=== PATIENT | male | born 1955 | race Caucasian/White ===

== ENCOUNTER 2018-01-14 14:23 | Emergency (ER) | payer MEDICARE, SELFPAY ==
[2018-01-14 14:33] VITALS: BP 140/88; PULSE 82; RESP 15; TEMP 36.8; O2SAT 95; BMI 29.9
--- NOTE | 2018-01-14 14:52 | ED.EXTPRO ---
HPI - Extremity Problem General Chief complaint: Extremity Problem,Nontraumatic Stated complaint: states right hand is turning white and tingly Time Seen by Provider: 01/14/18 14:52 Source: patient Mode of arrival: ambulatory Limitations: no limitations History of Present Illness HPI Narrative: Patient is a 62-year-old male here for evaluation of pain in his right wrist. He states that the symptoms have started over the past 24 hr. No trauma. He states that prior to arrival he noticed that his right hand was white, painful, cool and the color and his fingernails was slower to recover compared to the left side. No fevers. No trauma. He states that his symptoms have significantly improved at the time of my evaluation. He does have a prior history of open reduction internal fixation of his right wrist 15 years ago. Related Data Home Medications Medication Instructions Recorded Confirmed amlodipine 10 mg PO DAILY 01/14/18 01/14/18 aspirin 81 mg PO DAILY 01/14/18 01/14/18 benazepril 40 mg PO DAILY 01/14/18 01/14/18 chlorthalidone 50 mg PO DAILY 01/14/18 01/14/18 lovastatin 40 mg PO DAILY 01/14/18 01/14/18 metoprolol succinate 1 tab PO DAILY 01/14/18 01/14/18 Allergies Allergy/AdvReac Type Severity Reaction Status Date / Time No Known Drug Allergies Allergy Verified 01/14/18 14:32 Review of Systems Constitutional Denies fatigue and Denies fever(s) Cardiovascular Denies chest pain, Denies irregular heart rhythm, Denies palpitations and Denies dyspnea Respiratory Denies dyspnea and Denies wheezing Gastrointestinal Gastrointestinal: Denies abdominal pain, Denies nausea and Denies vomiting Genitourinary Denies dysuria Musculoskeletal Reports arthralgias and Denies joint swelling Comments: Right wrist pain Integumentary/Breasts Denies rash and Denies wounds Comments: Cool, white right hand Neurologic Comments: Some tingling in the right hand Endocrine Denies fatigue and Denies palpitations Hematologic/Lymphatic Denies easy bleeding and Denies easy bruising Allergic/Immunologic Denies wheezing [facility] Medical History Abdominal aortic aneurysm (Acute) Hyperlipidemia (Acute) Hypertension (Acute) Surgical History History of abdominal aortic aneurysm repair (Acute) History of carpal tunnel release of both wrists (Acute) Hx of cholecystectomy (Acute) Social History Smoking Status: Current every day smoker Exam Initial Vital Signs Initial Vital Signs: Vital Signs Temperature 98.3 F 01/14/18 14:33 Pulse Rate 82 01/14/18 14:33 Respiratory Rate 15 01/14/18 14:33 Blood Pressure 140/88 01/14/18 14:33 Pulse Oximetry 95 01/14/18 14:33 Const General: cooperative, healthy appearing, comfortable, well developed, well groomed and No acute distress Orientation: alert, awake and oriented x3 HENMT Head: normal to inspection and normocephalic Resp Effort & Inspection: normal respiratory effort Auscultation: clear to auscultation bilaterally Cardio Rate: regular rate Rhythm: regular rhythm Heart Sounds: no murmurs Other: I was able to Doppler both a radial and ulnar pulse right upper extremity. Capillary refill 2 sec GI Inspection: non-distended Palpation: No firm and No tender Skin Lesions: no lesions Rashes: no rashes Neuro Other: Sensation intact to light touch in all 3 nerve distributions of the right upper extremity Extrem Other: Right shoulder unremarkable. Patient is tender to palpation medial aspect of right distal humerus. Right elbow unremarkable. Patient is able to flex and extend his right wrist however this is reduced secondary to his history of wrist fusion. Is exquisitely tender to palpation over the volar aspect radial aspect distal radius. Right hand unremarkable. Psych Appearance: grossly normal and well kempt Course Orders Ordered: ED Orders 01/14/18 14:58 CT angio UE RT Stat XR wrist RT min 3V Stat 01/14/18 15:45 Basic Metabolic Panel Stat Complete Blood Count AUTO DIFF Stat Partial Thromboplastin Time Stat Prothrombin Time INR Stat Heparin Sodium/Dextrose (Heparin Drip) 25,000 unit in 500 mls @ 22.752 mls/hr IV CONT JUAN CARLOS; Protocol Last Admin: 01/14/18 19:27 Dose: 12 units/kg/hr, 22.752 mls/hr Discontinued Medications Heparin Sodium (Porcine) (Heparin) 5,700 unit 60 unit/kg (5700 unit) IV NOW ONE Stop: 01/14/18 18:36 Last Admin: 01/14/18 19:27 Dose: 5,700 unit Sodium Chloride (Normal Saline 0.9%) 1,000 mls @ 1,000 mls/hr IV BOLUS ONE Stop: 01/14/18 15:59 Last Infusion: 01/14/18 18:16 Dose: 0 mls/hr Admin: 01/14/18 16:25 Dose: 1,000 mls/hr Morphine Sulfate (Morphine) 2 mg IV NOW ONE Stop: 01/14/18 19:14 Last Admin: 01/14/18 19:18 Dose: 2 mg Vital Signs - 8 hr 01/14/18 14:33 Temperature 98.3 F Pulse Rate 82 Respiratory Rate 15 Blood Pressure 140/88 Pulse Oximetry 95 MDM - Extremity (Nontraumatic) Lab Data Result diagrams: 01/14/18 15:45 01/14/18 15:45 Lab Results 01/14/18 01/14/18 01/14/18 Range/Units 15:45 15:45 15:45 WBC 10.9 (4.5-11.0) X10^3/uL RBC 5.35 (4.5-5.9) X10^6/uL Hgb 16.5 (13.5-17.5) g/dL Hct 47.6 (41-53) % MCV 89.1 (80-100) fL MCH 30.8 (26-34) PG MCHC 34.6 (30-36) % RDW 13.1 (11.6-14.8) % Plt Count 236 (150-400) X10^3/uL Neut % (Auto) 67.7 (50-75) % Lymph % (Auto) 17.6 L (25-40) % [place] % (Auto) 11.5 (3-14) % Eos % (Auto) 2.3 (2-4) % Baso % (Auto) 0.9 (0-2) % Neut # (Auto) 7400 H (8057-0769) /uL PT 14.5 H (10.1-12.7) SECONDS INR 1.3 (0.9-1.3) APTT 25 L (26.4-36.2) SECONDS Sodium 145 (137-145) mmol/L Potassium 3.5 (3.4-5.1) mmol/L Chloride 102 (98-107) mmol/L Carbon Dioxide 31 (22-32) mmol/L BUN 18 (9-20) mg/dL Creatinine 0.90 (0.66-1.25) mg/dL Estimated GFR > 60.0 (>60) mL/min BUN/Creatinine Ratio 20.0 (6-22) Glucose 107 (80-110) mg/dL Calcium 10.4 H (8.4-10.2) mg/dL Imaging Data X-ray wrist: Radiologist's impression: PROCEDURE: XR WRIST RT MIN 3V INDICATIONS: pain wrist TECHNIQUE: 3 views of the wrist were acquired. COMPARISON: None. FINDINGS: Bones: No fractures or dislocations. No suspicious bony lesions. There is appearance of an old healed mid ulnar fracture. Surgical hardware is present overlying the anterior carpal bones. Rounded lucencies noted within the proximal radial shaft as well as the carpal bones. No priors are available for comparison. Scaphoid view: Not obtained. Soft tissues: No suspicious soft tissue calcifications. IMPRESSION: Lucency is present within the proximal radial shaft and mid carpal bones, possibly representing old hardware tract. No visualized acute fracture or dislocation. However, if clinical concern and/or pain persist, short interval imaging followup in 7-10 days is recommended, as occult injury cannot be definitively excluded. Dictated by: Loli Ortega M.D. on 01/14/2018 at 15:24 Approved by: Loli Ortega M.D. on 01/14/2018 at 15:26 CT angio right upper extremity: Radiologist's impression: [place] [address] CT Scan Report Signed Patient: Leon Ashby [facility]#: [id number] : 4Acct:[id number] Age/Sex: 62 / MDate of Service: 01/14/18 Loc: ED Accession Number: [id number] Procedure: CT angio UE RT Ordering Provider: Art Sierra D.O. PROCEDURE: CT ANGIO UE RT COMPARISON: None. INDICATIONS: white, cool, painful hand Contrast was injected and images were acquired of the right upper extremity in the arterial phase. FINDINGS: Visualized portions of the left brachiocephalic, carotid, and subclavian artery are unremarkable. The right common carotid artery is normal caliber where visualized. The right subclavian artery is ectatic throughout its course. There is ectasia of the right axillary artery and the superior portion of the right brachial artery. There is focal, nonocclusive thrombus within the midportion of the right brachial artery (series 6, image 325 and series 7, image 29). The more peripheral portions of the right brachial artery are widely patent. There is likely bifurcation of the radial and ulnar arteries at the antecubital fossa; however the ulnar artery is not opacified in this region. There is opacification of the midportion of the ulnar and interosseous arteries. The radial artery is opacified to the mid forearm; however, the contrast bolus does not extend more distally towards the wrist secondary to poor bolus timing. There is some opacification of a diminutive ulnar artery within the mid forearm. Patient is status post distant trauma to the mid shaft of the ulna. Hardware is present within the carpal bones. Degenerative changes are present in this region. IMPRESSION: 1. Findings suspicious for focal, nonocclusive thrombus within the midportion of the right brachial artery. Given the patient history, embolic event should be considered in the differential diagnosis. Urgent vascular surgery consultation recommended. 2. Incomplete opacification of the arteries of the forearm. Unfortunately given the poor timing bolus occlusive thrombus within the forearm cannot be excluded at this time. If further characterization is oriented, ultrasound of the arteries of the forearm is recommended. These findings were discussed with Dr. Sierra at 4:50 PM on 01/15/08. Dictated by: Emmanuelle Bailon M.D. on 01/14/2018 at 16:56 Approved by: Emmanuelle Bailon M.D. on 01/14/2018 at 17:13 MDM Narrative Medical decision making narrative: X-ray shows no acute fracture. The CTA of the right wrist shows a nonocclusive right brachial artery thrombus. Given the history of how the patient presented prior to arrival I do have concern some concern about emboli. Since the patient has been here in the emergency department he has had capillary refill of 2 sec, the tingling in his hand has all but resolved and he does have dopplerable radial and ulnar pulses. I discussed the case with Dr. Salazar at [facility] who reviewed the patient's CT. He stated that because it was a nonocclusive thrombus and the fact that the patient's symptoms were improving that he could be started on IV heparin and observed for worsening condition and then transition to oral anticoagulation. He also recommended a echo and also vascular studies of the right upper extremity. Our review stated that since he was not acutely requiring surgery that they could not accept him. They did state that if his symptoms worsen he would already be on heparin we could call him back and transfer the patient. I discussed the case with Dr. Noguera who is our hospitalist here who had concerns about admitting him here in the event of his symptoms worsening and also our capability of obtaining an echo and also the right upper extremity vascular studies that the surgeon had recommended. Secondary to this concern from the hospitalist I did contact the vascular surgeon at [facility].. Dr. Proctor had some reluctance of accepting the patient secondary to my already having talked with a vascular surgeon down at [facility]. However he did state that if the hospitalist would accept the patient and if there were beds available he would be happy to consult on the patient. He did agree with the heparin. I discussed the case with Dr. Fernandez who was the hospitalist at [facility] he did accept the patient in transfer. The patient has been started on heparin. He was given pain medications. He was informed of the decision from the [facility] physicians and also the decision to transport him to [facility]. Patient expressed understanding and agreement this plan. Discharge Plan Departure Patient Disposition: [facility] Clinical Impression: Brachial artery thrombus Prescriptions: No Action metoprolol succinate 50 mg tablet extended release 24 hr 1 tab PO DAILY RF: 0 amlodipine 10 mg tablet 10 mg PO DAILY RF: 0 lovastatin 40 mg tablet 40 mg PO DAILY RF: 0 chlorthalidone 50 mg tablet 50 mg PO DAILY RF: 0 aspirin 81 mg Tablet,Delayed Release (Dr/Ec) 81 mg PO DAILY RF: 0 benazepril 40 mg tablet 40 mg PO DAILY RF: 0
--- NOTE | 2018-01-14 14:58 | DI.CT.S_ITS ---
PROCEDURE: CT ANGIO UE RT COMPARISON: None. INDICATIONS: white, cool, painful hand Contrast was injected and images were acquired of the right upper extremity in the arterial phase. FINDINGS: Visualized portions of the left brachiocephalic, carotid, and subclavian artery are unremarkable. The right common carotid artery is normal caliber where visualized. The right subclavian artery is ectatic throughout its course. There is ectasia of the right axillary artery and the superior portion of the right brachial artery. There is focal, nonocclusive thrombus within the midportion of the right brachial artery (series 6, image 325 and series 7, image 29). The more peripheral portions of the right brachial artery are widely patent. There is likely bifurcation of the radial and ulnar arteries at the antecubital fossa; however the ulnar artery is not opacified in this region. There is opacification of the midportion of the ulnar and interosseous arteries. The radial artery is opacified to the mid forearm; however, the contrast bolus does not extend more distally towards the wrist secondary to poor bolus timing. There is some opacification of a diminutive ulnar artery within the mid forearm. Patient is status post distant trauma to the mid shaft of the ulna. Hardware is present within the carpal bones. Degenerative changes are present in this region. IMPRESSION: 1. Findings suspicious for focal, nonocclusive thrombus within the midportion of the right brachial artery. Given the patient history, embolic event should be considered in the differential diagnosis. Urgent vascular surgery consultation recommended. 2. Incomplete opacification of the arteries of the forearm. Unfortunately given the poor timing bolus occlusive thrombus within the forearm cannot be excluded at this time. If further characterization is oriented, ultrasound of the arteries of the forearm is recommended. These findings were discussed with Dr. Sierra at 4:50 PM on 01/15/08. Dictated by: Emmanuelle Bailon M.D. on 01/14/2018 at 16:56 Approved by: Emmanuelle Bailon M.D. on 01/14/2018 at 17:13
--- NOTE | 2018-01-14 14:58 | DI.RAD.S_ITS ---
PROCEDURE: XR WRIST RT MIN 3V INDICATIONS: pain wrist TECHNIQUE: 3 views of the wrist were acquired. COMPARISON: None. FINDINGS: Bones: No fractures or dislocations. No suspicious bony lesions. There is appearance of an old healed mid ulnar fracture. Surgical hardware is present overlying the anterior carpal bones. Rounded lucencies noted within the proximal radial shaft as well as the carpal bones. No priors are available for comparison. Scaphoid view: Not obtained. Soft tissues: No suspicious soft tissue calcifications. IMPRESSION: Lucency is present within the proximal radial shaft and mid carpal bones, possibly representing old hardware tract. No visualized acute fracture or dislocation. However, if clinical concern and/or pain persist, short interval imaging followup in 7-10 days is recommended, as occult injury cannot be definitively excluded. Dictated by: Loli Ortega M.D. on 01/14/2018 at 15:24 Approved by: Loli Ortega M.D. on 01/14/2018 at 15:26
[2018-01-14 15:55] LABS: Add Manual Diff / Slide Review NO; Basophils Percent Auto 0.9 % (0-2); Eosinophils Percent Auto 2.3 % (2-4); Hematocrit 47.6 % (41-53); Hemoglobin 16.5 g/dL (13.5-17.5); Lymphocytes Percent Auto 17.6 % (25-40); Mean Corpuscular HGB Conc 34.6 % (30-36); Mean Corpuscular Hemoglobin 30.8 PG (26-34); Mean Corpuscular Volume 89.1 fL (80-100); Monocytes Percent Auto 11.5 % (3-14); Neutrophils Absolute Auto 7400 /uL (3000-5900); Neutrophils Percent Auto 67.7 % (50-75); Platelet Count 236 X10^3/uL (150-400); Red Blood Cell Count 5.35 X10^6/uL (4.5-5.9); Red Cell Distribution Width 13.1 % (11.6-14.8); White Blood Cell Count 10.9 X10^3/uL (4.5-11.0)
[2018-01-14 16:04] LABS: INR 1.3 (0.9-1.3); Prothrombin Time 14.5 SECONDS (10.1-12.7)
[2018-01-14 16:06] LABS: PTT Partial Thromboplastin Tim 25 SECONDS (26.4-36.2)
[2018-01-14 16:08] LABS: Blood Urea Nitrogen 18 mg/dL (9-20); Calcium 10.4 mg/dL (8.4-10.2); Carbon Dioxide 31 mmol/L (22-32); Chloride 102 mmol/L (98-107); Estimated Glomerular Filt Rate > 60.0 mL/min (>60); Glucose 107 mg/dL (80-110); HEMOLYSIS 15 (0-50); Potassium 3.5 mmol/L (3.4-5.1); Sodium 145 mmol/L (137-145)
[2018-01-14] MEDS: SODIUM CHLORIDE 0.9% 1,000 ML 1000 ML IV (16:25)
[2018-01-14 17:30] VITALS: BP 164/88; PULSE 86; RESP 20
[2018-01-14] MEDS: MORPHINE 4 MG/ML INJ 2 MG IV (19:18)
[2018-01-14] MEDS: HEPARIN DRIP 25,000 UNIT/500 ML IV.SOLN 22.752 UNIT IV (19:27)
[2018-01-14] MEDS: HEPARIN 5,000 UNIT/ML VIAL 5700 UNIT IV (19:27)
[2018-01-14 20:30] VITALS: BP 125/88; PULSE 80; RESP 20; O2SAT 98
[2018-01-14] MEDS: MORPHINE 2 MG/ML INJ IV (21:00)
--- NOTE | 2018-01-14 21:25 | PC.NURSE ---
pt skin and nails pink when he holds hand downward.
== END 2018-01-14 21:15 | disposition short-term general hospital (02) ==
PROVIDERS: Emergency Provider Emergency Medicine
DX: I74.2 Embolism and thrombosis of arteries of the upper extremities (principal)
CPT/HCPCS: 36591; 73110; 73206; 80048; 85025; 85610; 85730; 96361; 96365; 96366; 96375; 96376; 99283; 99285; J1644; J2270; Q9967

== ENCOUNTER 2018-01-17 09:48 | Emergency (ER) | payer MEDICARE, SELFPAY ==
[2018-01-17 09:52] VITALS: BP 140/88; PULSE 67; RESP 18; TEMP 36.2; O2SAT 96
--- NOTE | 2018-01-17 10:42 | ED.EXTPRO ---
HPI - Extremity Problem General Chief complaint: Extremity Problem,Nontraumatic Stated complaint: Right arm pain and swelling Time Seen by Provider: 01/17/18 09:58 Source: patient and old records reviewed Mode of arrival: ambulatory Limitations: no limitations History of Present Illness HPI Narrative: Patient is a 62-year-old male who presents with right forearm swelling. He actually presented here on 01/14/2018 with ischemic like symptoms found to have a brachial artery occlusion. He was transferred to telling him where he had a thrombectomy of the radial and axillary artery. He was discharged yesterday. He did not have any significant swelling yesterday. Today he has obvious swelling and some serosanguineous weeping from his wounds. He denies fever or chills he has no numbness or tingling in his hand. It previously had intermittent white this to the hand today he does not have that. He has no weakness. MD Complaint: extremity swelling Related Data Home Medications Medication Instructions Recorded Confirmed amlodipine 10 mg PO DAILY 01/14/18 01/17/18 aspirin 81 mg PO DAILY 01/14/18 01/17/18 benazepril 40 mg PO DAILY 01/14/18 01/17/18 chlorthalidone 50 mg PO DAILY 01/14/18 01/17/18 lovastatin 40 mg PO DAILY 01/14/18 01/17/18 metoprolol succinate 1 tab PO DAILY 01/14/18 01/17/18 enoxaparin 30 mg SUBCUT Q12H 01/17/18 01/17/18 warfarin [Coumadin] 5 mg PO DIRECTED 01/17/18 01/17/18 Allergies Allergy/AdvReac Type Severity Reaction Status Date / Time No Known Drug Allergies Allergy Verified 01/17/18 09:55 Review of Systems Review of Systems All systems reviewed & are unremarkable except as noted in HPI and below Constitutional Denies chills, Denies fever(s), Denies lethargy and Denies weakness Cardiovascular Denies chest pain, Denies irregular heart rhythm, Denies lightheadedness, Denies palpitations, Denies dyspnea, Denies dyspnea on exertion and Denies orthopnea Respiratory Denies cough, Denies dyspnea, Denies dyspnea on exertion and Denies wheezing Gastrointestinal Gastrointestinal: Denies abdominal pain, Denies change in bowel habits, Denies diarrhea, Denies nausea and Denies vomiting Musculoskeletal Reports as per HPI and Denies tingling Integumentary/Breasts Denies pruritus, Denies erythema, Denies rash, Reports skin swelling and Reports wounds (Postoperative) Neurologic Denies burning sensations, Denies radicular pain, Denies tingling, Denies paresthesias and Denies weakness Endocrine Denies palpitations Allergic/Immunologic Denies wheezing [facility] Medical History Abdominal aortic aneurysm (Acute) COPD (chronic obstructive pulmonary disease) (Acute) Hyperlipidemia (Acute) Hypertension (Acute) Patent foramen ovale (Acute) Peripheral vascular disease (Acute) Surgical History History of abdominal aortic aneurysm repair (Acute) History of carpal tunnel release of both wrists (Acute) Hx of cholecystectomy (Acute) Social History Smoking Status: Current every day smoker Comment: Thrombectomy of the radial and axillary artery Exam Initial Vital Signs Initial Vital Signs: Vital Signs Temperature 97.2 F L 01/17/18 09:52 Pulse Rate 67 01/17/18 09:52 Respiratory Rate 18 01/17/18 09:52 Blood Pressure 140/88 01/17/18 09:52 Pulse Oximetry 96 01/17/18 09:52 GENERAL: Well-appearing, well-nourished and in no acute distress. HEENT: Head atraumatic,EOMI, pupils reactive, face symmetric, moist mucous membranes CARDIOVASCULAR: Regular rate and rhythm without murmurs, rubs or gallops. RESPIRATORY: Breath sounds equal bilaterally, no wheezes rales or rhonchi. ABDOMEN: Soft, nontender. Normoactive bowel sounds all 4 quadrants. No guarding or rebound. EXTREMITIES: Normal range of motion, no clubbing or edema. Neurovascularly intact -Right forearm does have significant swelling incision sites are id an appear clean and dry no erythema or sign of infection. Distal radial pulse is palpable and strong. Ulnar pulses not felt. Cap refill less than 2 sec. Able to move all fingers sensation is intact NEUROLOGICAL: Alert and oriented x4.Normal gait and speech. Cranial nerves II through XII grossly intact. SKIN: Warm, dry, no laceration, no petechiae, no rashes or lesions. Course Orders Ordered: Discontinued Medications Enoxaparin Sodium (Lovenox) 30 mg SUBCUT DAILY JUAN CARLOS Last Admin: 01/17/18 15:40 Dose: 30 mg Hydromorphone HCl (Dilaudid) 1 mg IV NOW ONE Stop: 01/17/18 10:48 Last Admin: 01/17/18 11:23 Dose: 1 mg Hydromorphone HCl (Dilaudid) 1 mg IV NOW ONE Stop: 01/17/18 14:53 Last Admin: 01/17/18 14:40 Dose: 1 mg Warfarin Sodium (Coumadin) 5 mg PO NOW ONE Stop: 01/17/18 15:46 Last Admin: 01/17/18 16:06 Dose: 5 mg Vital Signs - 8 hr 01/17/18 09:52 Temperature 97.2 F L Pulse Rate 67 Respiratory Rate 18 Blood Pressure 140/88 Pulse Oximetry 96 MDM - Extremity (Nontraumatic) Medical Records Attestation: I reviewed the patient's medical records. Lab Data Attestation: I reviewed the patient's lab results. Result diagrams: 01/17/18 11:08 01/17/18 11:08 Lab Results 01/17/18 01/17/18 Range/Units 11:08 11:08 WBC 13.3 H (4.5-11.0) X10^3/uL RBC 4.71 (4.5-5.9) X10^6/uL Hgb 14.6 (13.5-17.5) g/dL Hct 42.2 (41-53) % MCV 89.7 (80-100) fL MCH 31.0 (26-34) PG MCHC 34.6 (30-36) % RDW 12.9 (11.6-14.8) % Plt Count 219 (150-400) X10^3/uL Neut % (Auto) 75.0 (50-75) % Lymph % (Auto) 13.0 L (25-40) % [place] % (Auto) 9.9 (3-14) % Eos % (Auto) 1.4 L (2-4) % Baso % (Auto) 0.7 (0-2) % Neut # (Auto) 9900 H (7014-2666) /uL Sodium 145 (137-145) mmol/L Potassium 3.8 (3.4-5.1) mmol/L Chloride 105 (98-107) mmol/L Carbon Dioxide 34 H (22-32) mmol/L BUN 21 H (9-20) mg/dL Creatinine 0.80 (0.66-1.25) mg/dL Estimated GFR > 60.0 (>60) mL/min BUN/Creatinine Ratio 26.3 H (6-22) Glucose 102 (80-110) mg/dL Calcium 9.6 (8.4-10.2) mg/dL Imaging Data US right UE arterial: Radiologist's impression: PROCEDURE: US ARTERIAL DUPLEX UE RT COMPARISON: None. INDICATIONS: recent embolectomy of right upper extremity arterial clot, decreased ulnar pulse FINDINGS: Right subclavian: 44 cm/s; biphasic flow Right axillary: 18 cm second; monophasic flow Mid right brachial: 101 cm/s; biphasic flow. Right distal radial: 44 cm/s; biphasic flow Right distal ulnar 11 cm/s; monophasic flow IMPRESSION: Reduced flow in the right axillary artery and the distal right ulnar artery which be due to a vascular injury/dissection, atherosclerotic stenosis or nonocclusive thrombus. Recommend CT angiogram for further evaluation. Findings discussed with Dr. Bowie on 01/17/18 at 1205 hrs. Dictated by: Candice Vitale MD, PhD on 01/17/2018 at 12:00 CT angio Right UE: Radiologist's impression: PROCEDURE: CT angiogram right upper extremity INDICATIONS: recent thrombus right brachial-now pain and swelling TECHNIQUE: Following the administration of intravenous contrast, multiple contiguous axial images were obtained through the right upper extremity during the arterial phase. 2 mm in 5 mm axial reconstructions were performed with 3 mm coronal and sagittal reformats. COMPARISON: [facility], CT, CT ANGIO UE RT, 01/14/2018, 16:15. FINDINGS: Image quality: Excellent. Arteries: The right brachiocephalic, subclavian, axillary, and brachial arteries appear widely patent. There is occlusive thrombus demonstrated at the origin of a branch arising from the brachial artery at the level of the proximal humeral shaft likely representing the deep brachial artery. The radial artery appears patent along its course to the level of the wrist where there is occlusive thrombus. The ulnar artery also appears patent to the level of the wrist where there is apparent occlusion. The interosseous artery appears patent along its course extending into the hand. Soft tissues: There is mild edema and fluid tracking along the proximal radial artery at the level of the proximal humerus. Visualized muscles demonstrate no fluid collections. Visualized tendons appear grossly intact. Within the visualized right lung, there is a small right upper lobe nodule measuring approximately 6 mm on series 5 image 362. A smaller 2 mm nodule is straight in the right apex on image 57. Bones: Visualized osseous structures appear intact without suspicious osseous lesions. IMPRESSION: 1. 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 The interosseous artery appears patent along its course extending into the hand with associated collateral flow. 2. Occlusion of the deep brachial artery at its origin at the level of the proximal humeral shaft. Findings discussed with Dr. Bowie on 01/17/18 at 2:15 PM. 3. Small nonspecific right upper lobe dominant nodules within the visualized lungs measuring up to 6 mm. If patient is at high risk for malignancy, a followup CT may be performed in 12 months to demonstrate stability. Dictated by: Rafi Cortes M.D. on 01/17/2018 at 13:58 MDM Narrative Medical decision making narrative: I spoke with , vascular surgery up at billing him. She recommended a CT for more information. She has reviewed the CT herself she finds a CTA very reassuring. His hand is warm with a palpable radial pulse. His he recommends that he fill his anticoagulation as soon as possible any give follow up in the office as previously arranged. Patient has been elevating the arm since I have seen him. The swelling has actually decreased quite a bit, the pain has also decreased. Dilaudid did help with the pain. Discussed with him that the CT is reassuring that vascular surgery has reviewed it. He is given his 1st dose of anticoagulation here in the ED instructed to fill his prescription as soon as possible and start taking as directed. Discharge Plan Departure Patient Disposition: Home Clinical Impression: Peripheral vascular disease Discharge Date/Time: 01/17/18 16:08 Interventions: ED Discharge Assessment Last Done: 01/17/18 16:00 Instructions: Peripheral Artery Disease Activity Restrictions/Additional Instructions: *You have been diagnosed with peripheral vascular disease *What to do: I spoke with vascular surgery who has reviewed your CT today findings are reassuring. Keep arm elevated ice if needed *Continue to take medications as directed Start taking medications as directed you got her 1st dose today. *Follow up with your primary care provider in 2-3 days, follow up with vascular surgery in billing him as previously arranged *Return to ER if you should have numbness tingling, weakness, pain or any new, worsening or concerning symptoms Prescriptions: No Action metoprolol succinate 50 mg tablet extended release 24 hr 1 tab PO DAILY RF: 0 amlodipine 10 mg tablet 10 mg PO DAILY RF: 0 lovastatin 40 mg tablet 40 mg PO DAILY RF: 0 chlorthalidone 50 mg tablet 50 mg PO DAILY RF: 0 aspirin 81 mg Tablet,Delayed Release (Dr/Ec) 81 mg PO DAILY RF: 0 benazepril 40 mg tablet 40 mg PO DAILY RF: 0 warfarin [Coumadin] 5 mg Tablet 5 mg PO DIRECTED RF: 0 enoxaparin 30 mg/0.3 mL Syringe 30 mg SUBCUT Q12H RF: 0
--- NOTE | 2018-01-17 10:47 | DI.US.S_ITS ---
PROCEDURE: US ARTERIAL DUPLEX UE RT COMPARISON: None. INDICATIONS: recent embolectomy of right upper extremity arterial clot, decreased ulnar pulse FINDINGS: Right subclavian: 44 cm/s; biphasic flow Right axillary: 18 cm second; monophasic flow Mid right brachial: 101 cm/s; biphasic flow. Right distal radial: 44 cm/s; biphasic flow Right distal ulnar 11 cm/s; monophasic flow IMPRESSION: Reduced flow in the right axillary artery and the distal right ulnar artery which be due to a vascular injury/dissection, atherosclerotic stenosis or nonocclusive thrombus. Recommend CT angiogram for further evaluation. Findings discussed with Dr. Bowie on 01/17/18 at 1205 hrs. Dictated by: Candice Vitale MD, PhD on 01/17/2018 at 12:00 Approved by: Candice Vitale MD, PhD on 01/17/2018 at 12:06
[2018-01-17 11:15] LABS: Add Manual Diff / Slide Review NO; Basophils Percent Auto 0.7 % (0-2); Eosinophils Percent Auto 1.4 % (2-4); Hematocrit 42.2 % (41-53); Hemoglobin 14.6 g/dL (13.5-17.5); Mean Corpuscular HGB Conc 34.6 % (30-36); Mean Corpuscular Volume 89.7 fL (80-100); Monocytes Percent Auto 9.9 % (3-14); Neutrophils Absolute Auto 9900 /uL (3000-5900); Platelet Count 219 X10^3/uL (150-400); Red Blood Cell Count 4.71 X10^6/uL (4.5-5.9); Red Cell Distribution Width 12.9 % (11.6-14.8); White Blood Cell Count 13.3 X10^3/uL (4.5-11.0)
[2018-01-17] MEDS: HYDROMORPHONE 2 MG INJ 1 MG IV (11:23)
[2018-01-17 11:24] VITALS: BP 158/78; PULSE 88; RESP 18; O2SAT 98
[2018-01-17 11:28] LABS: BUN Creatinine Ratio 26.3 (6-22); Blood Urea Nitrogen 21 mg/dL (9-20); Calcium 9.6 mg/dL (8.4-10.2); Carbon Dioxide 34 mmol/L (22-32); Chloride 105 mmol/L (98-107); Estimated Glomerular Filt Rate > 60.0 mL/min (>60); Glucose 102 mg/dL (80-110); HEMOLYSIS < 15 (0-50); Potassium 3.8 mmol/L (3.4-5.1); Sodium 145 mmol/L (137-145)
--- NOTE | 2018-01-17 12:27 | PC.NURSE ---
pt's right arm is swollen. pt was seen at [facility] yesterday for ischemia in the [place], right arm thrombosis. pt reports that he had copious clots in that arm.
[2018-01-17 14:01] VITALS: BP 139/88; PULSE 55; RESP 18; O2SAT 98
--- NOTE | 2018-01-17 14:08 | DI.CT.S_ITS ---
PROCEDURE: CT angiogram right upper extremity INDICATIONS: recent thrombus right brachial-now pain and swelling TECHNIQUE: Following the administration of intravenous contrast, multiple contiguous axial images were obtained through the right upper extremity during the arterial phase. 2 mm in 5 mm axial reconstructions were performed with 3 mm coronal and sagittal reformats. COMPARISON: [facility], CT, CT ANGIO UE RT, 01/14/2018, 16:15. FINDINGS: Image quality: Excellent. Arteries: The right brachiocephalic, subclavian, axillary, and brachial arteries appear widely patent. There is occlusive thrombus demonstrated at the origin of a branch arising from the brachial artery at the level of the proximal humeral shaft likely representing the deep brachial artery. The radial artery appears patent along its course to the level of the wrist where there is occlusive thrombus. The ulnar artery also appears patent to the level of the wrist where there is apparent occlusion. The interosseous artery appears patent along its course extending into the hand. Soft tissues: There is mild edema and fluid tracking along the proximal radial artery at the level of the proximal humerus. Visualized muscles demonstrate no fluid collections. Visualized tendons appear grossly intact. Within the visualized right lung, there is a small right upper lobe nodule measuring approximately 6 mm on series 5 image 362. A smaller 2 mm nodule is straight in the right apex on image 57. Bones: Visualized osseous structures appear intact without suspicious osseous lesions. IMPRESSION: 1. 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 The interosseous artery appears patent along its course extending into the hand with associated collateral flow. 2. Occlusion of the deep brachial artery at its origin at the level of the proximal humeral shaft. Findings discussed with Dr. Bowie on 01/17/18 at 2:15 PM. 3. Small nonspecific right upper lobe dominant nodules within the visualized lungs measuring up to 6 mm. If patient is at high risk for malignancy, a followup CT may be performed in 12 months to demonstrate stability. Dictated by: Rafi Cortes M.D. on 01/17/2018 at 13:58 Approved by: Rafi Cortes M.D. on 01/17/2018 at 14:29
[2018-01-17] MEDS: HYDROMORPHONE 1 MG INJ IV (14:40)
[2018-01-17 15:23] VITALS: BP 133/89; PULSE 48; RESP 16; O2SAT 96
[2018-01-17] MEDS: ENOXAPARIN 30 MG/0.3 ML SYRINGE SUBCUT (15:40)
[2018-01-17 15:58] VITALS: BP 134/92; PULSE 75; RESP 16; O2SAT 98
[2018-01-17] MEDS: WARFARIN 5 MG TABLET PO (16:06)
== END 2018-01-17 16:08 | disposition home or self-care (01) ==
PROVIDERS: Emergency Provider Emergency Medicine
DX: I73.9 Peripheral vascular disease, unspecified (principal)
CPT/HCPCS: 36591; 73206; 80048; 85025; 93931; 96374; 96376; 99283; 99285; J1170; J1650; Q9967

== ENCOUNTER 2018-04-02 09:28 | Emergency (ER) | payer MEDICARE, SELFPAY ==
[2018-04-02 09:36] VITALS: BP 153/85; PULSE 70; RESP 14; TEMP 36.9; O2SAT 95
--- NOTE | 2018-04-02 10:08 | ED.LOWEXIN ---
HPI - Extremity Injury (Lower) General Chief Complaint: Extremity Injury, Lower Stated Complaint: lump on left leg Time Seen by Provider: 04/02/18 09:55 Source: patient Mode of arrival: ambulatory Limitations: no limitations History of Present Illness HPI Narrative: The patient is a 62-year-old male who presents with left knee swelling. He injured it a few weeks ago he has had some swelling and pain off and on but seem to be managing okay. however this morning he woke up this morning with significantly more swelling. Nontender non erythematous. It is in his patella tendon. He is on Coumadin is for clotting disorder. No numbness tingling. MD complaint: knee injury Onset (ago): week(s) (3) Related Data Home Medications Medication Instructions Recorded Confirmed amlodipine 10 mg PO DAILY 01/14/18 01/17/18 aspirin 81 mg PO DAILY 01/14/18 01/17/18 benazepril 40 mg PO DAILY 01/14/18 01/17/18 chlorthalidone 50 mg PO DAILY 01/14/18 01/17/18 lovastatin 40 mg PO DAILY 01/14/18 01/17/18 metoprolol succinate 1 tab PO DAILY 01/14/18 01/17/18 enoxaparin 30 mg SUBCUT Q12H 01/17/18 01/17/18 warfarin [Coumadin] 5 mg PO DIRECTED 01/17/18 01/17/18 Allergies Allergy/AdvReac Type Severity Reaction Status Date / Time No Known Drug Allergies Allergy Verified 01/17/18 09:55 Review of Systems Review of Systems All systems reviewed & are unremarkable except as noted in HPI and below Constitutional Denies chills, Denies fever(s), Denies lethargy and Denies weakness Eyes Denies change in vision, Denies eye discharge, Denies irritation and Denies loss of vision Cardiovascular Denies chest pain, Denies irregular heart rhythm, Denies lightheadedness, Denies palpitations, Denies dyspnea, Denies dyspnea on exertion and Denies orthopnea Respiratory Denies cough, Denies dyspnea, Denies dyspnea on exertion and Denies wheezing Musculoskeletal Reports as per HPI, Denies abnormal gait, Denies joint swelling, Denies numbness and Denies stiffness Integumentary/Breasts Denies pruritus, Denies erythema, Denies rash and Denies wounds Neurologic Denies abnormal gait, Denies loss of vision, Denies numbness and Denies weakness Endocrine Denies palpitations Allergic/Immunologic Denies wheezing PFSH Medical History Abdominal aortic aneurysm (Acute) Axillary artery thrombosis, right (Acute) COPD (chronic obstructive pulmonary disease) (Acute) Hyperlipidemia (Acute) Hypertension (Acute) Patent foramen ovale (Acute) Peripheral vascular disease (Acute) Radial artery occlusion, right (Acute) Surgical History History of abdominal aortic aneurysm repair (Acute) History of carpal tunnel release of both wrists (Acute) Hx of cholecystectomy (Acute) Social History Smoking Status: Current every day smoker Exam Initial Vital Signs Initial Vital Signs: Vital Signs Temperature 98.4 F 04/02/18 09:36 Pulse Rate 70 04/02/18 09:36 Respiratory Rate 14 04/02/18 09:36 Blood Pressure 153/85 H 04/02/18 09:36 Pulse Oximetry 95 04/02/18 09:36 GENERAL: Well-appearing, well-nourished and in no acute distress. CARDIOVASCULAR: peripheral pulses in tact, cap refill <2 sec RESPIRATORY: No respiratory distress, speaks in full sentences without difficulty EXTREMITIES: Normal range of motion, no clubbing or edema. Neurovascularly intact -left patella swelling no effusion of the knee full flexion and extension. No erythema nontender neurovascularly intact. Effusion measures 6 cm x 7 cm NEUROLOGICAL: Cranial nerves II through XII grossly intact. Normal gait and speech. SKIN: Warm, dry, no petechiae, no rashes or lesions. Course Vital Signs - 8 hr 04/02/18 10:29 Pulse Rate 72 Respiratory Rate 19 Blood Pressure [Left Arm] 147/98 H Pulse Oximetry 95 MDM - Extremity Injury (Lower) MDM Narrative Medical decision making narrative: Patient's knee is stable no real patella effusion it is more of a patellar tendon effusion. Patient is on Coumadin at this time recommend conservative treatment with compression elevation and ice. If it is getting worse then may need draining. No sign of infection at this time. Discharge Plan Departure Patient Disposition: Home Clinical Impression: Patellar tendonitis of left knee, Effusion of patella Discharge Date/Time: 04/02/18 10:35 Interventions: ED Discharge Assessment Last Done: 04/02/18 10:35 Instructions: DI for Knee Effusion Activity Restrictions/Additional Instructions: *You have been diagnosed with a left knee effusion patellar tendon effusion *What to do: Compressed with Rashel wrap especially while active possibly at night as well. May remove as needed. Ice, elevate *Continue to take medications as directed *Follow up with your primary care provider in 2-3 days *Return to ER if you should have redness, pus, swelling, tenderness or any new, worsening or concerning symptoms Prescriptions: No Action metoprolol succinate 50 mg tablet extended release 24 hr 1 tab PO DAILY RF: 0 amlodipine 10 mg tablet 10 mg PO DAILY RF: 0 lovastatin 40 mg tablet 40 mg PO DAILY RF: 0 chlorthalidone 50 mg tablet 50 mg PO DAILY RF: 0 aspirin 81 mg Tablet,Delayed Release (Dr/Ec) 81 mg PO DAILY RF: 0 benazepril 40 mg tablet 40 mg PO DAILY RF: 0 warfarin [Coumadin] 5 mg Tablet 5 mg PO DIRECTED RF: 0 enoxaparin 30 mg/0.3 mL Syringe 30 mg SUBCUT Q12H RF: 0 Referrals: Brandon Carver MD [Non-Staff] -
--- NOTE | 2018-04-02 10:12 | PC.NURSE ---
Effusion noted below left knee. Fall couple weeks ago, swelling worse this morning. No obvious bruising. CMS intact. ROM intact. On coumadin. Normal PT/INR
[2018-04-02 10:29] VITALS: BP 147/98; PULSE 72; RESP 19; O2SAT 95
== END 2018-04-02 10:35 | disposition home or self-care (01) ==
PROVIDERS: Emergency Provider Emergency Medicine
DX: M76.52 Patellar tendinitis, left knee (principal); M25.462 Effusion, left knee; Z79.01 Long term (current) use of anticoagulants
CPT/HCPCS: 99282

== ENCOUNTER 2018-04-12 13:35 | Emergency (ER) | payer MEDICARE, SELFPAY ==
[2018-04-12 13:44] VITALS: BP 132/84; PULSE 83; RESP 16; TEMP 36.4; O2SAT 99; BMI 31.5
--- NOTE | 2018-04-12 14:03 | ED_ITS ---
HPI - Extremity Problem General Chief complaint: Extremity Problem,Nontraumatic Stated complaint: LUMP UNDER KNEE, NOT GETTING BETTER Time Seen by Provider: 04/12/18 13:55 Source: patient Mode of arrival: ambulatory Limitations: no limitations History of Present Illness HPI Narrative: 62-year-old male presents with his in the chief complaint of ongoing swelling below his left knee. He did fall in the distant past but denies any new injury. He denies any significant pain nor redness or warmth. 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 He presents because he states things just aren't getting better, not necessarily worse. Complaint: extremity swelling Onset (ago): day(s) Pain Consistency: constant Location: left Quality: aching Associated symptoms: denies other symptoms Related Data Home Medications Medication Instructions Recorded Confirmed amlodipine 10 mg PO DAILY 01/14/18 01/17/18 aspirin 81 mg PO DAILY 01/14/18 01/17/18 benazepril 40 mg PO DAILY 01/14/18 01/17/18 chlorthalidone 50 mg PO DAILY 01/14/18 01/17/18 lovastatin 40 mg PO DAILY 01/14/18 01/17/18 metoprolol succinate 1 tab PO DAILY 01/14/18 01/17/18 enoxaparin 30 mg SUBCUT Q12H 01/17/18 01/17/18 warfarin [Coumadin] 5 mg PO DIRECTED 01/17/18 01/17/18 Allergies Allergy/AdvReac Type Severity Reaction Status Date / Time No Known Drug Allergies Allergy Verified 04/12/18 13:43 Review of Systems Review of Systems All systems reviewed & are unremarkable except as noted in HPI and below Constitutional Denies chills, Denies fever(s), Denies lethargy and Denies weakness Eyes Denies change in vision, Denies eye discharge, Denies irritation and Denies loss of vision ENT Ears, Nose, Mouth, and Throat: Denies change in voice, Denies neck pain and Denies sore throat Cardiovascular Denies chest pain, Denies irregular heart rhythm, Denies lightheadedness, Denies palpitations, Denies dyspnea, Denies dyspnea on exertion and Denies orthopnea Respiratory Denies cough, Denies dyspnea, Denies dyspnea on exertion and Denies wheezing Gastrointestinal Gastrointestinal: Denies abdominal pain, Denies change in bowel habits, Denies diarrhea, Denies nausea and Denies vomiting Genitourinary Denies hematuria, Denies flank pain, Denies urinary incontinence and Denies urinary urgency Musculoskeletal Reports joint swelling, Reports limited range of motion and Denies neck pain Integumentary/Breasts Denies pruritus, Denies erythema, Denies rash and Denies wounds Neurologic Denies confusion, Denies loss of vision and Denies weakness Psychiatric Denies anxiety, Denies confusion, Denies depression, Denies homicidal ideation and Denies suicidal ideation Endocrine Denies palpitations Hematologic/Lymphatic Denies easy bruising Allergic/Immunologic Denies wheezing [facility] Medical History Abdominal aortic aneurysm (Acute) Axillary artery thrombosis, right (Acute) COPD (chronic obstructive pulmonary disease) (Acute) Hyperlipidemia (Acute) Hypertension (Acute) Patent foramen ovale (Acute) Peripheral vascular disease (Acute) Radial artery occlusion, right (Acute) Surgical History History of abdominal aortic aneurysm repair (Acute) History of carpal tunnel release of both wrists (Acute) Hx of cholecystectomy (Acute) Social History Smoking Status: Current every day smoker Exam Narrative Exam Narrative: GEN: AOx3 and in mild distress EYES: Pupils are equal, round, and reactive to light and accommodation. Extraoccular muscles are intact bilaterally. There is no subconjunctival hemorrhage or exudate. CHEST: Lungs are clear to auscultation bilaterally and free of wheezes, rales, or rhonchi. Heart rate is regular rhythm, there are no murmurs, clicks, rubs, or gallops. There is no chest wall tenderness. ABD: Abdomen is soft and nontender. There is no guarding or rebound. Bowel sounds are normal in all 4 quadrants. There is no mass or organomegaly. EXT: Full painless ROM of all extremities with no loss of sensation or strength. Edematous, fluctuant mass below knee in distribution of patellar tendon. Joint has no effusion, erythema, edema, or warmth to suggest septic arthritis or hemarthrosis SKIN: Warm, pink, and dry. No erythema or rash Initial Vital Signs Initial Vital Signs: Vital Signs Temperature 97.5 F L 04/12/18 13:44 Pulse Rate 83 04/12/18 13:44 Respiratory Rate 16 04/12/18 13:44 Blood Pressure 132/84 04/12/18 13:44 Pulse Oximetry 99 04/12/18 13:44 Procedures Joint Aspiration Joint Asp./Inject. 1: Time Out Performed: Yes Side of body: left Joint Aspirated: knee Ultrasound Guidance: No Skin Prep: Chlorhexidine Local Anesthetic: lidocaine 1% and with bicarb Needle Size Used: 18G Fluid Obtained: bloody Total fluid obtained (mL): 30 Patient Tolerated Procedure: Well Complications: none Course Orders Ordered: ED Orders 04/12/18 14:20 Body Fluid Culture Stat 04/12/18 14:30 Cell Count w Diff Body Fluid Stat Vital Signs - 8 hr 04/12/18 13:44 04/12/18 14:37 Temperature 97.5 F L Pulse Rate 83 63 Respiratory Rate 16 18 Blood Pressure 132/84 133/97 H Pulse Oximetry 99 99 MDM - Extremity (Nontraumatic) Lab Data Lab Results 04/12/18 Range/Units 14:30 Fluid RBC 40997 /uL Fld Tot Nucleated Cell 756 /uL MDM Narrative Medical decision making narrative: hematoma in easily drained, unlikely from infection Discharge Plan Departure Patient Disposition: Home Clinical Impression: Effusion of patella, Patellar tendonitis of left knee Discharge Date/Time: 04/12/18 14:37 Interventions: ED Discharge Assessment Last Done: 04/12/18 14:37 Instructions: DI for Knee Effusion Activity Restrictions/Additional Instructions: *You have been diagnosed with [ hemorrhagic effusion, left patellar tendon ] *What to do: *Take medications as directed *Follow up with your primary care provider in 2-3 days, call for an appointment. Let them know you were seen in the Emergency Department and that we ask that you be seen in follow up *Return to ER if you should have any new, worsening or concerning symptoms Prescriptions: No Action metoprolol succinate 50 mg tablet extended release 24 hr 1 tab PO DAILY RF: 0 amlodipine 10 mg tablet 10 mg PO DAILY RF: 0 lovastatin 40 mg tablet 40 mg PO DAILY RF: 0 chlorthalidone 50 mg tablet 50 mg PO DAILY RF: 0 aspirin 81 mg Tablet,Delayed Release (Dr/Ec) 81 mg PO DAILY RF: 0 benazepril 40 mg tablet 40 mg PO DAILY RF: 0 warfarin [Coumadin] 5 mg Tablet 5 mg PO DIRECTED RF: 0 enoxaparin 30 mg/0.3 mL Syringe 30 mg SUBCUT Q12H RF: 0
[2018-04-12 14:37] VITALS: BP 133/97; PULSE 63; RESP 18; O2SAT 99
[2018-04-12 15:15] LABS: Body Fluid Red Blood Cells 98896 /uL; Body Fluid Tot Nucleated Cells 756 /uL
[2018-04-12 16:15] LABS: Body Fluid Appearance CLOUDY; Body Fluid Clotted? NO CLOTS PRESENT; Body Fluid Color RED
[2018-04-12 16:25] LABS: Eosinophils Body Fluid 3 %; Mononuclear WBC Body Fluid 62 %; Polynuclear WBC Body Fluid 35 %
== END 2018-04-12 14:37 | disposition home or self-care (01) ==
PROVIDERS: Emergency Provider Emergency Medicine; PCP Family Medicine
DX: M25.469 Effusion, unspecified knee (principal); M76.52 Patellar tendinitis, left knee
CPT/HCPCS: 20610; 87070; 87075; 87205; 89051; 99282; 99283

== ENCOUNTER 2020-03-10 12:46 | Emergency (ER) | payer MEDICARE, SELFPAY ==
[2020-03-10] VITALS (12 sets, daily range): BP systolic 138–172; BP diastolic 93–105; PULSE 59–90; RESP 15–19; O2SAT 90–97; BMI 31.1
--- NOTE | 2020-03-10 13:09 | DI.US.S_ITS ---
PROCEDURE: US PERIPH VENOUS UP EXTREM RT INDICATIONS: RIGHT ARM PAIN. HISTORY OF BLOOD CLOTS SAME ARM TECHNIQUE: Real-time imaging, as well as color and pulse Doppler interrogation, was performed of the right upper extremity deep veins from the inferior neck to the antecubital fossa. COMPARISON: [facility], , US ARTERIAL DUPLEX UE RT, 01/17/2018, 11:43. FINDINGS: Occlusive deep venous thrombosis can be seen involving the subclavian vein, axillary vein, brachial vein, and within the basilic vein Incidental note is made of apparent arterial thrombus within the subclavian and axillary veins. IMPRESSION: Extensive right upper extremity deep venous thrombosis. Apparent arterial thrombosis can also be seen. If clinically appropriate, please consider right upper extremity CT angiogram for further evaluation. Dictated by: Morris Rogel M.D. on 03/10/2020 at 13:55 Approved by: Morris Rogel M.D. on 03/10/2020 at 13:59
--- NOTE | 2020-03-10 15:17 | PC.NURSE ---
History of clots/vascular surgery on right arm. Unable to palpate radial pulse, pt does not know if that is normal for him. Cap refill 3 seconds.
--- NOTE | 2020-03-10 15:56 | ED.EXTPRO ---
HPI - Extremity Problem General Chief complaint: Extremity Problem,Nontraumatic Stated complaint: Pain in right arm x8 days Time Seen by Provider: 03/10/20 13:49 Source: patient Mode of arrival: Ambulatory Limitations: no limitations History of Present Illness HPI Narrative: Patient is a 64-year-old male who has a history of peripheral vascular disease, history of right. However the last 8 days he has had increased arm fatigue he has no numbness tingling or weakness. He has noticed that his arm is just aching and pain. He has no chest pain or shortness of breath. He has not had any recent PICC line or IV and the arm. His occlusion was back in 2018. He does take aspirin 81 mg daily, and continues to smoke daily. Patient states that in June of 2019 this year he was in [place] for a fractured hand and then proceeded to have 5 surgeries on his arm. Unable to get records at this time Related Data Home Medications Medication Instructions Recorded Confirmed amlodipine 10 mg PO DAILY 01/14/18 01/17/18 aspirin 81 mg PO DAILY 01/14/18 01/17/18 benazepril 40 mg PO DAILY 01/14/18 01/17/18 chlorthalidone 50 mg PO DAILY 01/14/18 01/17/18 lovastatin 40 mg PO DAILY 01/14/18 01/17/18 metoprolol succinate 1 tab PO DAILY 01/14/18 01/17/18 enoxaparin 30 mg SUBCUT Q12H 01/17/18 01/17/18 warfarin [Coumadin] 5 mg PO DIRECTED 01/17/18 01/17/18 Allergies Allergy/AdvReac Type Severity Reaction Status Date / Time No Known Drug Allergies Allergy Verified 03/10/20 13:03 Review of Systems Review of Systems Narrative: GENERAL: Denies chills, fatigue, malaise, fever, sweats, travel HEENT: Denies sinus pain, ear pain, sore throat, difficulty swallowing, neck pain RESPIRATORY: Denies dyspnea, cough, wheezing, hemoptysis, sputum. CARDIOVASCULAR: Denies chest pain, palpitations, orthopnea, edema GASTROINTESTINAL: Denies nausea, vomiting, abdominal pain, diarrhea, constipation, melena. : Denies dysuria, frequency, incontinence, hematuria, urinary retention, flank pain. MUSCULOSKELETAL: See HPI SKIN: No rash, no erythema, no pruritus NEUROLOGIC: Denies weakness, dizziness, headache, numbness, change in speech, confusion PSYCHIATRIC: No concerning psychosocial issues. 12 point review of systems is negative except for those stated above and HPI Patient History Medical History (Updated 03/10/20 @ 19:03 by Chen Bowie DO) Abdominal aortic aneurysm Axillary artery thrombosis, right COPD (chronic obstructive pulmonary disease) Hyperlipidemia Hypertension Patent foramen ovale Peripheral vascular disease Radial artery occlusion, right Surgical History History of abdominal aortic aneurysm repair History of carpal tunnel release of both wrists Hx of cholecystectomy Social History Smoking Status: Current every day smoker Smoking Status: Current every day smoker alcohol intake frequency: holidays/special occasions only Substance Use Type: does not use Exam Initial Vital Signs Initial Vital Signs: Vital Signs Pulse Rate 85 03/10/20 13:03 Respiratory Rate 15 03/10/20 13:03 Blood Pressure 156/105 H 03/10/20 13:03 Pulse Oximetry 95 03/10/20 13:03 GENERAL: Well-appearing, well-nourished and in no acute distress. HEENT: Head atraumatic,EOMI, pupils reactive, face symmetric, moist mucous membranes CARDIOVASCULAR: Regular rate and rhythm without murmurs, rubs or gallops. RESPIRATORY: Breath sounds equal bilaterally, no wheezes rales or rhonchi. EXTREMITIES: Normal range of motion, no clubbing or edema. 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 Minimal swelling NEUROLOGICAL: Alert and oriented x4.Normal gait and speech. SKIN: Warm, dry, no laceration, no petechiae, no rashes or lesions. Course Orders Ordered: ED Orders 03/10/20 13:09 US periph venous up extrem rt Stat 03/10/20 14:50 EKG-12 Lead Stat 03/10/20 14:55 Complete Blood Count AUTO DIFF Stat Comprehensive Metabolic Panel Stat Partial Thromboplastin Time Stat Prothrombin Time INR Stat 03/10/20 15:56 US arterial duplex UE RT Stat 03/10/20 17:28 CT angio chest PE protocol Stat 03/10/20 18:40 COVID19 Stat 03/11/20 05:00 Hemoglobin and Hematocrit DAILY Heparin Sodium/Dextrose (Heparin Drip) 25,000 unit in 500 mls @ 35.435 mls/hr IV CONT JUAN CARLOS; Protocol Last Admin: 03/10/20 18:21 Dose: 18 units/kg/hr, 35.435 mls/hr Documented by: MMINOR Discontinued Medications Heparin Sodium (Porcine) (Heparin 5,000 Unit/Ml Vial) 7,900 unit 80 unit/kg (7900 unit) IV NOW ONE Stop: 03/10/20 18:07 Last Admin: 03/10/20 18:16 Dose: 7,900 unit Documented by: MMINOR Vital Signs Vital signs: Vital Signs - 8 hr 03/10/20 13:03 03/10/20 15:09 03/10/20 15:30 Pulse Rate 85 73 69 Respiratory Rate 15 16 19 Blood Pressure 156/105 H 146/103 H Pulse Oximetry 95 96 90 L 03/10/20 16:00 03/10/20 16:30 03/10/20 17:41 Pulse Rate 73 70 59 L Respiratory Rate 18 Blood Pressure 139/96 H 141/95 H 138/96 H Pulse Oximetry 90 L 92 97 03/10/20 18:00 03/10/20 18:30 03/10/20 18:31 Pulse Rate 69 87 90 Respiratory Rate Blood Pressure 144/96 H 172/93 H Pulse Oximetry 97 91 03/10/20 19:00 03/10/20 19:01 03/10/20 19:30 Pulse Rate 75 75 75 Respiratory Rate Blood Pressure 145/94 H 143/93 H Pulse Oximetry 94 93 94 MDM - Extremity (Nontraumatic) Lab Data Result diagrams: 03/10/20 14:55 03/10/20 14:55 Labs: Lab Results 03/10/20 03/10/20 03/10/20 Range/Units 14:55 14:55 14:55 WBC 10.9 (4.5-11.0) X10^3/uL RBC 5.24 (4.5-5.9) X10^6/uL Hgb 16.0 (13.5-17.5) g/dL Hct 47.6 (41-53) % MCV 90.8 (80-100) fL MCH 30.6 (26-34) PG MCHC 33.6 (30-36) % RDW 12.9 (11.6-14.8) % Plt Count 280 (150-400) X10^3/uL Neut % (Auto) 63.4 (50-75) % Lymph % (Auto) 19.5 L (25-40) % Pratt % (Auto) 13.0 (3-14) % Eos % (Auto) 3.4 (2-4) % Baso % (Auto) 0.7 (0-2) % Neut # (Auto) 6900 (8930-5250) /uL Lymph # (Auto) 2100 (9147-8873) /uL Pratt # (Auto) 1400 H (0-900) /uL Eos # (Auto) 400 (0-450) /uL Baso # (Auto) 100 (0-100) /uL PT 16.0 H (10.1-12.7) SECONDS INR 1.4 H (0.9-1.3) APTT 26 L (26.4-36.2) SECONDS Sodium 141 (137-145) mmol/L Potassium 3.8 (3.4-5.1) mmol/L Chloride 102 (98-107) mmol/L Carbon Dioxide 35 H (22-32) mmol/L BUN 20 (9-20) mg/dL Creatinine 0.87 (0.66-1.25) mg/dL Estimated GFR > 60.0 (>60) mL/min BUN/Creatinine Ratio 23.0 H (6-22) Glucose 96 (80-110) mg/dL Calcium 9.5 (8.4-10.2) mg/dL Total Bilirubin 0.5 (0.2-1.3) mg/dL AST 28 (17-59) IU/L ALT 19 (<50) IU/L Alkaline Phosphatase 53 (38-126) U/L Total Protein 7.6 (6.3-8.2) g/dL Albumin 4.2 (3.5-5.0) g/dL Globulin 3.4 (1.7-4.1) g/dL Albumin/Globulin Ratio 1.2 (1.0-2.8) COVID-19 PCR (Negative) 03/10/20 Range/Units 18:40 WBC (4.5-11.0) X10^3/uL RBC (4.5-5.9) X10^6/uL Hgb (13.5-17.5) g/dL Hct (41-53) % MCV (80-100) fL MCH (26-34) PG MCHC (30-36) % RDW (11.6-14.8) % Plt Count (150-400) X10^3/uL Neut % (Auto) (50-75) % Lymph % (Auto) (25-40) % Pratt % (Auto) (3-14) % Eos % (Auto) (2-4) % Baso % (Auto) (0-2) % Neut # (Auto) (6672-2267) /uL Lymph # (Auto) (2923-3908) /uL Pratt # (Auto) (0-900) /uL Eos # (Auto) (0-450) /uL Baso # (Auto) (0-100) /uL PT (10.1-12.7) SECONDS INR (0.9-1.3) APTT (26.4-36.2) SECONDS Sodium (137-145) mmol/L Potassium (3.4-5.1) mmol/L Chloride (98-107) mmol/L Carbon Dioxide (22-32) mmol/L BUN (9-20) mg/dL Creatinine (0.66-1.25) mg/dL Estimated GFR (>60) mL/min BUN/Creatinine Ratio (6-22) Glucose (80-110) mg/dL Calcium (8.4-10.2) mg/dL Total Bilirubin (0.2-1.3) mg/dL AST (17-59) IU/L ALT (<50) IU/L Alkaline Phosphatase (38-126) U/L Total Protein (6.3-8.2) g/dL Albumin (3.5-5.0) g/dL Globulin (1.7-4.1) g/dL Albumin/Globulin Ratio (1.0-2.8) COVID-19 PCR Negative (Negative) Imaging Data CT scan - chest: Radiologist's Impression: PROCEDURE: CT ANGIO CHEST PE PROTOCOL INDICATIONS: right upper dvt TECHNIQUE: After the administration of intravenous contrast, 2 mm thick sections acquired from the pulmonary apices to the posterior costophrenic angles. 3-dimensional maximum intensity projection (MIP) coronal and sagittal reformats were then acquired through the thorax. For radiation dose reduction, the following was used: automated exposure control, adjustment of mA and/or kV according to patient size. COMPARISON: None. FINDINGS: Image quality: Excellent. Pulmonary arteries: Pulmonary arteries are normal in size, and demonstrate no intraluminal filling defects to suggest central pulmonary embolism. Lungs and pleura: Lungs are clear. No pleural effusions or pneumothorax. Central and peripheral airways are patent. Mediastinum: Heart size is normal, without pericardial effusion. No mediastinal or hilar adenopathy. Thoracic aorta is normal in caliber and enhancement. Esophagus is normal in caliber, without hiatal hernia. Bones and chest wall: Extensive fat stranding in the right subclavian space with enlargement of both the subclavian, axillary, and brachial arteries and veins. These findings consistent with the sonographically demonstrated thrombi in both of these vessels. Abdomen: Visualized upper abdominal solid organs appear normal in the early arterial phase of enhancement. IMPRESSION: No pulmonary embolism demonstrated. Findings in the right subclavian space consistent with extensive acute arterial and venous thrombosis involving the subclavian, axillary, and proximal brachial vasculature. Dictated by: Jose F Cadena M.D. on 03/10/2020 at 17:50 US - DVT: Radiologist's Impression: PROCEDURE: US PERIPH VENOUS UP EXTREM RT INDICATIONS: RIGHT ARM PAIN. HISTORY OF BLOOD CLOTS SAME ARM TECHNIQUE: Real-time imaging, as well as color and pulse Doppler interrogation, was performed of the right upper extremity deep veins from the inferior neck to the antecubital fossa. COMPARISON: [facility], US ARTERIAL DUPLEX UE RT, 01/17/2018, 11:43. FINDINGS: Occlusive deep venous thrombosis can be seen involving the subclavian vein, axillary vein, brachial vein, and within the basilic vein Incidental note is made of apparent arterial thrombus within the subclavian and axillary veins. IMPRESSION: Extensive right upper extremity deep venous thrombosis. Apparent arterial thrombosis can also be seen. If clinically appropriate, please consider right upper extremity CT angiogram for further evaluation. Dictated by: Morris Rogel M.D. on 03/10/2020 at 13:55 US arterial: Radiologist's Impression: PROCEDURE: US ARTERIAL DUPLEX UE RT INDICATIONS: HISTORY OF ARTERIAL CLOT. HAS DVT TECHNIQUE: Color and pulse Doppler interrogation was performed of right upper extremity arterial systems, with image documentation. COMPARISON: None. FINDINGS: The right subclavian artery and proximal brachial artery are both dilated and tortuous with diminished flow and flow velocities. There is extensive intraluminal partially occlusive and fully occlusive thrombus within the subclavian and brachial arteries, and also within the axillary artery. To a lesser degree there is partial occlusion of the ulnar and radial arteries. IMPRESSION: Extensive right upper extremity arterial thrombosis, most severe in the axillary and subclavian artery as well as the proximal brachial artery. Probable embolic partially occlusive thrombi within the ulnar and radial arteries. Dictated by: Jose F Cadena M.D. on 03/10/2020 at 17:46 Approved by: Jose F Cadena M.D. on 03/10/2020 at 17:48 ECG Data Attestation EKG: I personally reviewed and interpreted this ECG as follows: Prior ECG tracings: not available for review Interpretation: Normal sinus rhythm rate 69, p.r. interval 182 QRS 90 a QTC [address] changes or Q-waves noted in lead 3 MDM Narrative Medical decision making narrative: Initially DVT study was positive, however based on his history also needed an arterial ultrasound. Ultrasound does show an arterial thrombus CT a for PE and he had a better look at the upper part of the are more clot seems to be most burden was ordered. 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 Unable to palpate pulses however unclear what patient's baseline is. CT reveals extensive arterial clot. 1814-Spoke with vascular surgery Dr. urias, who has been able to review images recommends transferring to ER for evaluation. Patient is immediately started on heparin bolus and heparin drip. Discharge Plan Departure Patient Disposition: [facility] Clinical Impression: Thrombosis of subclavian artery Deep venous thrombosis of upper extremity Qualifiers: Affected thrombotic vein of extremity: unspecified vein of extremity Chronicity: acute Laterality: right Qualified Code(s): I82.621 - Acute embolism and thrombosis of deep veins of right upper extremity Prescriptions: No Action metoprolol succinate 50 mg tablet extended release 24 hr 1 tab PO DAILY RF: 0 amlodipine 10 mg tablet 10 mg PO DAILY RF: 0 lovastatin 40 mg tablet 40 mg PO DAILY RF: 0 chlorthalidone 50 mg tablet 50 mg PO DAILY RF: 0 aspirin 81 mg Tablet,Delayed Release (Dr/Ec) 81 mg PO DAILY RF: 0 benazepril 40 mg tablet 40 mg PO DAILY RF: 0 warfarin [Coumadin] 5 mg Tablet 5 mg PO DIRECTED RF: 0 enoxaparin 30 mg/0.3 mL Syringe 30 mg SUBCUT Q12H RF: 0 Referrals: Brandon Carver MD [Primary Care Provider] -
[2020-03-10 16:10] LABS: PTT Partial Thromboplastin Tim 26 SECONDS (26.4-36.2)
[2020-03-10 16:11] LABS: Alanine Aminotransferase 19 IU/L (<50); Albumin 4.2 g/dL (3.5-5.0); Albumin Globulin Ratio 1.2 (1.0-2.8); Alkaline Phosphatase 53 U/L (38-126); Aspartate Aminotransferase 28 IU/L (17-59); Bilirubin Total 0.5 mg/dL (0.2-1.3); Blood Urea Nitrogen 20 mg/dL (9-20); Calcium 9.5 mg/dL (8.4-10.2); Carbon Dioxide 35 mmol/L (22-32); Chloride 102 mmol/L (98-107); Estimated Glomerular Filt Rate > 60.0 mL/min (>60); Globulin 3.4 g/dL (1.7-4.1); Glucose 96 mg/dL (80-110); HEMOLYSIS 26 (0-50); Potassium 3.8 mmol/L (3.4-5.1); Sodium 141 mmol/L (137-145); Total Protein 7.6 g/dL (6.3-8.2)
[2020-03-10 16:17] LABS: INR 1.4 (0.9-1.3)
[2020-03-10 17:03] LABS: Add Manual Diff / Slide Review NO; Basophils Absolute Auto 100 /uL (0-100); Basophils Percent Auto 0.7 % (0-2); Eosinophils Absolute Auto 400 /uL (0-450); Eosinophils Percent Auto 3.4 % (2-4); Hematocrit 47.6 % (41-53); Lymphocytes Absolute Auto 2100 /uL (1100-4500); Lymphocytes Percent Auto 19.5 % (25-40); Mean Corpuscular HGB Conc 33.6 % (30-36); Mean Corpuscular Hemoglobin 30.6 PG (26-34); Mean Corpuscular Volume 90.8 fL (80-100); Monocytes Absolute Auto 1400 /uL (0-900); Neutrophils Absolute Auto 6900 /uL (1500-7000); Neutrophils Percent Auto 63.4 % (50-75); Platelet Count 280 X10^3/uL (150-400); Red Blood Cell Count 5.24 X10^6/uL (4.5-5.9); Red Cell Distribution Width 12.9 % (11.6-14.8); White Blood Cell Count 10.9 X10^3/uL (4.5-11.0)
--- NOTE | 2020-03-10 17:28 | DI.CT.S_ITS ---
PROCEDURE: CT ANGIO CHEST PE PROTOCOL INDICATIONS: right upper dvt TECHNIQUE: After the administration of intravenous contrast, 2 mm thick sections acquired from the pulmonary apices to the posterior costophrenic angles. 3-dimensional maximum intensity projection (MIP) coronal and sagittal reformats were then acquired through the thorax. For radiation dose reduction, the following was used: automated exposure control, adjustment of mA and/or kV according to patient size. COMPARISON: None. FINDINGS: Image quality: Excellent. Pulmonary arteries: Pulmonary arteries are normal in size, and demonstrate no intraluminal filling defects to suggest central pulmonary embolism. Lungs and pleura: Lungs are clear. No pleural effusions or pneumothorax. Central and peripheral airways are patent. Mediastinum: Heart size is normal, without pericardial effusion. No mediastinal or hilar adenopathy. Thoracic aorta is normal in caliber and enhancement. Esophagus is normal in caliber, without hiatal hernia. Bones and chest wall: Extensive fat stranding in the right subclavian space with enlargement of both the subclavian, axillary, and brachial arteries and veins. These findings consistent with the sonographically demonstrated thrombi in both of these vessels. Abdomen: Visualized upper abdominal solid organs appear normal in the early arterial phase of enhancement. IMPRESSION: No pulmonary embolism demonstrated. Findings in the right subclavian space consistent with extensive acute arterial and venous thrombosis involving the subclavian, axillary, and proximal brachial vasculature. Dictated by: Jose F Cadena M.D. on 03/10/2020 at 17:50 Approved by: JoseF Cadena M.D. on 03/10/2020 at 17:52
[2020-03-10] MEDS: HEPARIN 5,000 UNIT/ML VIAL 7900 UNIT IV (18:16)
[2020-03-10] MEDS: HEPARIN DRIP 25,000 UNIT/500 ML IV.SOLN 35.435 UNIT IV (18:21)
--- NOTE | 2020-03-10 19:00 | PC.NURSE ---
Report given to CATE Connors at [facility] in [place]
[2020-03-10 19:11] LABS: COVID19 -Nasal RAPID Negative (Negative)
--- NOTE | 2020-03-22 23:34 | PC.NURSE ---
Late entry: 03/10/2020-Pt had received a total of 36ml of heparin via iv. Pt was transported with Heparin infusing upon transfer.
== END 2020-03-10 19:35 | disposition short-term general hospital (02) ==
PROVIDERS: Emergency Provider Emergency Medicine; PCP Family Medicine
DX: I82.621 Acute embolism and thrombosis of deep veins of right upper extremity (principal); I74.8 Embolism and thrombosis of other arteries
CPT/HCPCS: 36415; 71275; 80053; 85025; 85610; 85730; 87635; 93005; 93931; 93971; 96365; 96375; 99284; J1644; Q9967

== ENCOUNTER 2021-01-06 14:13 | Emergency (ER) | payer MEDICARE, SELFPAY ==
[2021-01-06 14:19] VITALS: BP 135/92; PULSE 83; RESP 18; TEMP 36.6; O2SAT 95; BMI 31.5
[2021-01-06 15:22] VITALS: PULSE 68; O2SAT 92
[2021-01-06 15:23] VITALS: BP 138/89; PULSE 79; O2SAT 95
[2021-01-06 15:30] VITALS: BP 123/86; PULSE 77; RESP 18; O2SAT 96
[2021-01-06 16:00] VITALS: BP 127/87; PULSE 73; RESP 18; O2SAT 96
--- NOTE | 2021-01-06 16:08 | DI.RAD.S_ITS ---
PROCEDURE: XR HIP W PEL IF DONE RT 2V INDICATIONS: right hip pain TECHNIQUE: AP pelvis with lateral view of the right hip. COMPARISON: None. FINDINGS: Bones: No acute fractures or dislocations. Pelvic ring appears intact. No suspicious bony lesions. Degenerative changes are seen in the included lower lumbar spine. [id number] degenerative changes are seen in the hips bilaterally. Soft tissues: The visualized bowel gas pattern is normal. Mild calcification of the right acetabular labrum. Surgical clips are seen projecting over the lumbar spine and pelvic bones. IMPRESSION: 1. No acute osseous abnormality. If the symptoms persist, consider cross sectional imaging such as MRI or CT for further assessment. 2. Mild to moderate symmetric bilateral hip osteoarthrosis. 3. Degenerative changes in the included lumbar spine. Dictated by: Elijah Felder M.D. on 01/06/2021 at 16:23 Approved by: Elijah Felder M.D. on 01/06/2021 at 16:25
--- NOTE | 2021-01-06 16:29 | ED.EXTPRO ---
HPI - Extremity Problem <Juan José Burgess PA-C - Last Filed: 01/06/21 19:47> General Chief complaint: Extremity Problem,Nontraumatic Stated complaint: migrating pain in rt leg, getting worse Time Seen by Provider: 01/06/21 15:32 Source: patient Mode of arrival: Ambulatory Limitations: no limitations History of Present Illness HPI Narrative: Leon presents today with chief complaint of right hip and upper leg pain that started about 3 months ago and has waxed and waned since that time. Reports that occasionally walking helps it and occasionally walking makes it worse. He has been taking ibuprofen which does seem to help his symptoms. He denies any significant numbness of his leg, swelling, chest pain, shortness of breath, abdominal pain, scrotal pain or any other acute concerns or complaints at this time. His past medical history of arthritis. Related Data Home Medications Medication Instructions Recorded Confirmed amlodipine 10 mg tablet 10 mg PO DAILY 01/14/18 01/17/18 aspirin 81 mg tablet,delayed 81 mg PO DAILY 01/14/18 01/17/18 release benazepril 40 mg tablet 40 mg PO DAILY 01/14/18 01/17/18 chlorthalidone 50 mg tablet 50 mg PO DAILY 01/14/18 01/17/18 lovastatin 40 mg tablet 40 mg PO DAILY 01/14/18 01/17/18 metoprolol succinate 50 mg 1 tab PO DAILY 01/14/18 01/17/18 tablet,extended release 24 hr enoxaparin 30 mg/0.3 mL 30 mg SUBCUT Q12H 01/17/18 01/17/18 subcutaneous syringe warfarin 5 mg tablet (Coumadin) 5 mg PO DIRECTED 01/17/18 01/17/18 Allergies Allergy/AdvReac Type Severity Reaction Status Date / Time No Known Drug Allergies Allergy Verified 03/10/20 13:03 Review of Systems <Juan José Burgess PA-C - Last Filed: 01/06/21 19:47> Review of Systems Narrative: As per HPI Patient History <Juan José Burgess PA-C - Last Filed: 01/06/21 19:47> Medical History (Updated 01/06/21 @ 16:38 by Juan José Burgess PA-C) Abdominal aortic aneurysm Axillary artery thrombosis, right COPD (chronic obstructive pulmonary disease) Hyperlipidemia Hypertension Patent foramen ovale Peripheral vascular disease Radial artery occlusion, right Surgical History History of abdominal aortic aneurysm repair History of carpal tunnel release of both wrists Hx of cholecystectomy Social History Smoking Status: Current every day smoker Smoking Status: Current every day smoker tobacco type: cigarettes alcohol intake frequency: holidays/special occasions only Substance Use Type: does not use Exam <Juan José Burgess PA-C - Last Filed: 01/06/21 19:47> Narrative Exam Narrative: Exam Narrative: Const General: cooperative, healthy appearing, comfortable, no acute distress, well developed and well groomed Nutritional Appearance: average body habitus Orientation: alert and oriented x3 HENMT Head: normal to inspection and atraumatic Ears: hearing grossly normal bilaterally Nose: external nose normal and nares normal Face and sinus: normal facial exam Neck Neck: normal visual inspection and supple Resp Effort & Inspection: normal respiratory effort, able to speak in complete sentences, no audible wheezes, not labored, no nasal flaring and no respiratory distress GI Nontender to to palpation, normal bowel sounds, no masses noted. Neuro General: alert, oriented x3, gait normal, tone normal and moves all extremities, patellar DTR 2+ bilaterally. Cognition: normal cognition Speech: speech normal Gait: normal gait Musculoskeletal No midline spinal tenderness, no SI joint tenderness, no significant bony tenderness in his leg or pelvis. Full range of motion of the hip without crepitus. No soft tissue tenderness noted. No pedal edema, no calf swelling. Calf circumference is equal bilaterally. Skin No overlying skin abnormalities noted at this time. Psych Appearance: grossly normal and well kempt Mental Status: mental status grossly normal Speech and Movement: speech and movement normal Mood: congruent mood Affect: normal affect Initial Vital Signs Initial Vital Signs: Vital Signs Temperature 97.9 F 01/06/21 14:19 Pulse Rate 83 01/06/21 14:19 Respiratory Rate 18 01/06/21 14:19 Blood Pressure 135/92 H 01/06/21 14:19 Pulse Oximetry 95 01/06/21 14:19 <Tiesha Acevedo DO - Last Filed: 01/08/21 15:37> Initial Vital Signs Initial Vital Signs: Vital Signs Temperature 97.9 F 01/06/21 14:19 Pulse Rate 83 01/06/21 14:19 Respiratory Rate 18 01/06/21 14:19 Blood Pressure 135/92 H 01/06/21 14:19 Pulse Oximetry 95 01/06/21 14:19 Scores <Juan José Burgess PA-C - Last Filed: 01/06/21 19:47> Milka Criteria for DVT Active Cancer (Treatment within 6 months): No Bedridden recently >3 days or major surgery within 4 weeks: No Calf Swelling >3cm compared to other leg: No Collateral (nonvericose) superficial veins present: No Entire leg swollen: No Localized tenderness along the deep vein system: No Pitting edema, confined to symtomatic leg: No Paralysis, paresis, or recent plaster immobilization of ext: No Previously documented DVT: Yes Alternative dx to DVT as likely or more likely: Yes Milka criteria for DVT: -1 <Tiesha Acevedo DO - Last Filed: 01/08/21 15:37> Milka Criteria for DVT Eulogio' criteria for DVT: -1 Course <Juan José Burgess PA-C - Last Filed: 01/06/21 19:47> Orders Ordered: Discontinued Medications Ketorolac Tromethamine (Ketorolac 30 Mg/Ml Vial) 30 mg IM NOW ONE Stop: 01/06/21 16:31 Last Admin: 01/06/21 16:37 Dose: Not Given Documented by: CISCO Vital Signs Vital signs: Vital Signs - 8 hr 01/06/21 14:19 01/06/21 15:22 01/06/21 15:23 Temperature 97.9 F Pulse Rate 83 68 79 Respiratory Rate 18 Blood Pressure 135/92 H 138/89 Pulse Oximetry 95 92 95 01/06/21 15:30 01/06/21 16:00 Temperature Pulse Rate 77 73 Respiratory Rate 18 18 Blood Pressure 123/86 127/87 Pulse Oximetry 96 96 <DO Chi Busby Last Filed: 01/08/21 15:37> Orders Ordered: Discontinued Medications Ketorolac Tromethamine (Ketorolac 30 Mg/Ml Vial) 30 mg IM NOW ONE Stop: 01/06/21 16:31 Last Admin: 01/06/21 16:37 Dose: Not Given Documented by: CISCO Vital Signs Vital signs: Vital Signs - 8 hr 01/06/21 14:19 01/06/21 15:22 01/06/21 15:23 Temperature 97.9 F Pulse Rate 83 68 79 Respiratory Rate 18 Blood Pressure 135/92 H 138/89 Pulse Oximetry 95 92 95 01/06/21 15:30 01/06/21 16:00 Temperature Pulse Rate 77 73 Respiratory Rate 18 18 Blood Pressure 123/86 127/87 Pulse Oximetry 96 96 MDM - Extremity (Nontraumatic) <Juan José Burgess PA-C - Last Filed: 01/06/21 19:47> MDM Narrative Medical decision making narrative: Patient is well-appearing at this time. He does not have any significant physical examination findings that would suggest DVT. He has past medical history of arthritis and this has been going on for 3 months already. These sporadic nature of his symptoms makes me think that this is more related to arthritis and his scoliosis then if it is to a DVT or other soft tissue conditions. There are no signs of infection at this time. He is recommended to follow up with his PCP for continued evaluation. Strict ER return precautions were discussed. Patient verbalizes understanding and agrees to plan and has no further concerns at this time. Thank you A [id number] system was used with the dictation of this note. Please disregard any spelling or grammatical errors. Discharge Plan Departure Patient Disposition: Home Clinical Impression: Chronic right hip pain Activity Restrictions/Additional Instructions: It was nice to meet you this afternoon. Please apply warm compresses and do stretching to that area in addition to light range of motion. You can take nonsteroidal anti-inflammatories to help with the discomfort. Recommend following up with her PCP for continued evaluation. You may benefit from physical therapy so please discuss that with your doctor. If you experience any significant worsening symptoms feel free to return for re-evaluation. Thank you Juan José Burgess PA-C Prescriptions: No Action metoprolol succinate 50 mg tablet extended release 24 hr 1 tab PO DAILY RF: 0 amlodipine 10 mg tablet 10 mg PO DAILY RF: 0 lovastatin 40 mg tablet 40 mg PO DAILY RF: 0 chlorthalidone 50 mg tablet 50 mg PO DAILY RF: 0 aspirin 81 mg Tablet,Delayed Release (Dr/Ec) 81 mg PO DAILY RF: 0 benazepril 40 mg tablet 40 mg PO DAILY RF: 0 warfarin [Coumadin] 5 mg Tablet 5 mg PO DIRECTED RF: 0 enoxaparin 30 mg/0.3 mL Syringe 30 mg SUBCUT Q12H RF: 0 Referrals: Brandon Carver MD [Primary Care Provider] - <Teisha Acevedo DO - Last Filed: 01/08/21 15:37> Cosign ED Attending Cosignature Attestation: I was immediately available in the department for consultation. Documentation has been reviewed.
== END 2021-01-06 16:51 | disposition home or self-care (01) ==
PROVIDERS: Emergency Provider Physician Assistant; PCP Family Medicine
DX: G89.29 Other chronic pain (principal); M25.551 Pain in right hip
CPT/HCPCS: 73502; 96372; 99283

== ENCOUNTER 2021-11-06 11:13 | Inpatient (IN) | payer MEDICARE, SELFPAY ==
[2021-11-06] VITALS (25 sets, daily range): BP systolic 130–160; BP diastolic 73–100; PULSE 79–94; RESP 16–28; TEMP 36.7–37.4; O2SAT 86–96; BMI 31.5
--- NOTE | 2021-11-06 12:03 | ED_ITS ---
HPI - SOB/Dyspnea General Chief Complaint: Shortness of Breath/Dyspnea Stated Complaint: Trouble breathing, Can't smell/taste, fever Time Seen by Provider: 11/06/21 11:47 History of Present Illness HPI Narrative: Patient is a 66-year-old male with extensive medical history including COPD, severe peripheral vascular disease, right upper extremity stent, abdominal aortic aneurysm with repair, hypertension hyperlipidemia he is currently taking Eliquis presenting today with increasing shortness of breath. He states over last 3-4 days he has had night sweats. He has had productive cough. He denies any orthopnea or peripheral edema. He feels more short of breath than normal. He denies any chest pain but does have shortness of breath with exertion. He is currently 86% on room air. Related Data Home Medications Medication Instructions Recorded Confirmed amlodipine 10 mg tablet 10 mg PO DAILY 01/14/18 01/17/18 aspirin 81 mg tablet,delayed 81 mg PO DAILY 01/14/18 01/17/18 release benazepril 40 mg tablet 40 mg PO DAILY 01/14/18 01/17/18 chlorthalidone 50 mg tablet 50 mg PO DAILY 01/14/18 01/17/18 lovastatin 40 mg tablet 40 mg PO DAILY 01/14/18 01/17/18 metoprolol succinate 50 mg 1 tab PO DAILY 01/14/18 01/17/18 tablet,extended release 24 hr enoxaparin 30 mg/0.3 mL 30 mg SUBCUT Q12H 01/17/18 01/17/18 subcutaneous syringe warfarin 5 mg tablet (Coumadin) 5 mg PO DIRECTED 01/17/18 01/17/18 Allergies Allergy/AdvReac Type Severity Reaction Status Date / Time No Known Drug Allergies Allergy Verified 03/10/20 13:03 Review of Systems Review of Systems Narrative: GENERAL: Denies chills, fatigue, malaise, fever, sweats, travel HEENT: Denies sinus pain, ear pain, sore throat, difficulty swallowing, neck pain RESPIRATORY: See HPI CARDIOVASCULAR: Denies chest pain, palpitations, orthopnea, edema GASTROINTESTINAL: Denies nausea, vomiting, abdominal pain, diarrhea, constipation, melena. : Denies dysuria, frequency, incontinence, hematuria, urinary retention, flank pain. MUSCULOSKELETAL: Denies weakness, joint pain, or bony pain SKIN: No rash, no erythema, no pruritus NEUROLOGIC: Denies weakness, dizziness, headache, numbness, change in speech, confusion PSYCHIATRIC: No concerning psychosocial issues. 12 point review of systems is negative except for those stated above and HPI Patient History Medical History (Updated 11/06/21 @ 13:26 by Chen Bowie DO) Abdominal aortic aneurysm Axillary artery thrombosis, right COPD (chronic obstructive pulmonary disease) Hyperlipidemia Hypertension Patent foramen ovale Peripheral vascular disease Radial artery occlusion, right Surgical History History of abdominal aortic aneurysm repair History of carpal tunnel release of both wrists Hx of cholecystectomy Social History household members: spouse Smoking Status: Current every day smoker Smoking Status: Current every day smoker tobacco type: cigarettes alcohol intake frequency: holidays/special occasions only Substance Use Type: does not use Exam Initial Vital Signs Initial Vital Signs: Vital Signs Temperature 99.0 F 11/06/21 11:33 Pulse Rate 87 11/06/21 11:33 Respiratory Rate 20 11/06/21 11:33 Blood Pressure 143/90 H 11/06/21 11:33 Pulse Oximetry 86 L 11/06/21 11:33 Oxygen Delivery Method 11/06/21 11:33 GENERAL: Alert pleasant 66-year-old male appears in moderate respiratory distress and in no acute distress. HEENT: Head atraumatic,EOMI, pupils reactive, face symmetric, moist mucous membranes CARDIOVASCULAR: Regular rate and rhythm without murmurs, rubs or gallops. RESPIRATORY: Decreased breath sounds bilaterally slight bilateral wheezing tachypnea noted ABDOMEN: Soft, nontender. Normoactive bowel sounds all 4 quadrants. No guarding or rebound. EXTREMITIES: Normal range of motion, no clubbing or edema. Neurovascularly intact NEUROLOGICAL: Alert and oriented x4.Normal gait and speech. SKIN: Warm, dry, no laceration, no petechiae, no rashes or lesions. Course Orders Ordered: ED Orders 11/06/21 11:40 EKG-12 Lead Stat RT Consult Eval and Treat Now 11/06/21 11:45 COVID19 -Nasal RAPID/Pre-Proc Stat 11/06/21 12:12 ABG [Arterial Blood Gas] Stat 11/06/21 12:51 XR chest 1V Stat 11/06/21 13:07 Blood Culture Stat Acetaminophen (Acetaminophen 325 Mg Tablet) 650 mg PO Q6HR PRN PRN Reason: Fever/Mild Pain (1-3) Albuterol/Ipratropium (Albuterol/Ipratropium 3 Ml Ampul) 3 ml INH Q4HR PRN PRN Reason: Shortness Of Breath Aspirin (Aspirin Ec 81 Mg Tablet) 81 mg PO DAILY [facility] Budesonide (Budesonide 0.5 Mg/2 Ml Neb) 0.5 mg INH RTBID [facility] Last Admin: 11/06/21 19:56 Dose: 0.5 mg Documented By: TV Dextrose (Dextrose 50 % In Water 25 Gm/50 Ml Syringe) 25 gm IV PRN PRN PRN Reason: Hypoglycemia Docusate Sodium (Docusate 100 Mg Capsule) 100 mg PO BID [facility] Azithromycin 500 mg/ Dextrose 250 mls @ 250 mls/hr IV Q24H [facility] Last Admin: 11/06/21 17:52 Dose: 250 mls/hr Documented By: MARIO Insulin Human Lispro (Insulin Lispro 100 Unit/Ml 3ml Vial) 0 unit SUBCUT ACHS [facility]; Protocol Ipratropium [place] (Ipratropium 0.5 Mg/2.5 Ml Neb) 0.5 mg INH RTQ4HR [facility] Last Admin: 11/06/21 19:56 Dose: 0.5 mg Documented By: AMINAH Methylprednisolone (Methylprednisolone 125 Mg/2 Ml Vial) 80 mg IV Q6HR [facility] Last Admin: 11/06/21 18:25 Dose: 80 mg Documented By: MARIO Sennosides (Sennosides 8.6 Mg Tablet) 17.2 mg PO BEDTIME [facility] Discontinued Medications Albuterol (Albuterol 2.5 Mg/3 Ml Neb (Adult)) 2.5 mg INH NOW ONE Stop: 11/06/21 14:46 Last Admin: 11/06/21 15:06 Dose: 2.5 mg Documented By: JORGE Albuterol/Ipratropium (Albuterol/Ipratropium 3 Ml Ampul) 3 ml INH NOW ONE Stop: 11/06/21 12:05 Last Admin: 11/06/21 12:27 Dose: 3 ml Documented By: MARIAH Albuterol/Ipratropium (Albuterol/Ipratropium 3 Ml Ampul) 6 ml INH NOW ONE Stop: 11/06/21 12:41 Last Admin: 11/06/21 12:42 Dose: 6 ml Documented By: MARIAH Methylprednisolone (Methylprednisolone 125 Mg/2 Ml Vial) 125 mg IV NOW ONE Stop: 11/06/21 12:52 Last Admin: 11/06/21 12:57 Dose: 125 mg Documented By: AT Vital Signs Vital signs: Vital Signs - 8 hr 11/06/21 12:27 11/06/21 12:42 11/06/21 12:15 Pulse Rate 81 80 Respiratory Rate 20 18 Blood Pressure 160/99 H Pulse Oximetry 94 94 Oxygen Delivery Method Nasal Cannula Nasal Cannula Oxygen Flow Rate 3 3 11/06/21 12:15 11/06/21 12:30 11/06/21 12:30 Pulse Rate 80 79 Respiratory Rate 25 H Blood Pressure 153/100 H Pulse Oximetry 94 95 Oxygen Delivery Method Oxygen Flow Rate 11/06/21 12:45 11/06/21 13:00 11/06/21 13:00 Pulse Rate 82 83 Respiratory Rate Blood Pressure 145/92 H Pulse Oximetry 96 90 L Oxygen Delivery Method Nasal Cannula Oxygen Flow Rate 3 11/06/21 13:15 11/06/21 13:30 11/06/21 13:36 Pulse Rate 86 87 85 Respiratory Rate Blood Pressure Pulse Oximetry 94 90 L 90 L Oxygen Delivery Method Nasal Cannula Oxygen Flow Rate 4 11/06/21 13:36 Pulse Rate Respiratory Rate Blood Pressure 132/78 Pulse Oximetry Oxygen Delivery Method Oxygen Flow Rate MDM - SOB/Dyspnea Lab Data Result diagrams: 11/06/21 11:00 11/06/21 11:00 Labs: Lab Results 11/06/21 11/06/21 11/06/21 Range/Units 11:00 11:00 11:00 WBC 8.4 (4.5-11.0) X10^3/uL RBC 5.36 (4.5-5.9) X10^6/uL Hgb 16.4 (13.5-17.5) g/dL Hct 48.8 (41-53) % MCV 91.0 (80-100) fL MCH 30.5 (26-34) PG MCHC 33.5 (30-36) % RDW 14.0 (11.6-14.8) % Plt Count 168 (150-400) X10^3/uL Neut % (Auto) 70.4 (50-75) % Lymph % (Auto) 13.0 L (25-40) % [place] % (Auto) 15.1 H (3-14) % Eos % (Auto) 1.1 L (2-4) % Baso % (Auto) 0.4 (0-2) % Neut # (Auto) 5900 (9597-0840) /uL Lymph # (Auto) 1100 (3633-1117) /uL [place] # (Auto) 1300 H (0-900) /uL Eos # (Auto) 100 (0-450) /uL Baso # (Auto) 0 (0-100) /uL PT (10.1-12.7) SECONDS INR (0.9-1.3) APTT (26.4-36.2) SECONDS ABG pH (7.35-7.45) ABG pCO2 (35-45) mmHg ABG pO2 (80-100) mmHg ABG HCO3 (22-26) mmol/L ABG Total CO2 (21-31) mmol/L ABG O2 Saturation (95-100) % ABG Base Excess (-2-2) mmol/L FiO2 Sodium 141 (137-145) mmol/L Potassium 3.5 (3.4-5.1) mmol/L Chloride 97 L (98-107) mmol/L Carbon Dioxide 39 H (22-32) mmol/L BUN 21 H (9-20) mg/dL Creatinine 0.95 (0.66-1.25) mg/dL Estimated GFR > 60 (>60) mL/min BUN/Creatinine Ratio 22.1 H (6-22) Glucose 104 (80-110) mg/dL Lactate 0.9 (0.7-2.1) mmol/L Calcium 9.0 (8.4-10.2) mg/dL Magnesium (1.6-2.3) mg/dL Total Bilirubin 0.5 (0.2-1.3) mg/dL AST 40 (17-59) IU/L ALT 27 (<50) IU/L Alkaline Phosphatase 57 (38-126) U/L Total Creatine Kinase (55-170) U/L CK-MB (CK-2) (<2.37) ng/mL CK-MB (CK-2) Rel Index (1.5-5.0) % Troponin I (0.01-0.034) ng/mL NT-Pro-B Natriuret Pep (<125) pg/mL Total Protein 7.3 (6.3-8.2) g/dL Albumin 4.3 (3.5-5.0) g/dL Globulin 3.0 (1.7-4.1) g/dL Albumin/Globulin Ratio 1.4 (1.0-2.8) Procalcitonin (<0.5) ng/mL SARS-CoV-2 (PCR) (Negative) 11/06/21 11/06/21 11/06/21 Range/Units 11:00 11:00 11:00 WBC (4.5-11.0) X10^3/uL RBC (4.5-5.9) X10^6/uL Hgb (13.5-17.5) g/dL Hct (41-53) % MCV (80-100) fL MCH (26-34) PG MCHC (30-36) % RDW (11.6-14.8) % Plt Count (150-400) X10^3/uL Neut % (Auto) (50-75) % Lymph % (Auto) (25-40) % [place] % (Auto) (3-14) % Eos % (Auto) (2-4) % Baso % (Auto) (0-2) % Neut # (Auto) (3322-3100) /uL Lymph # (Auto) (4247-9716) /uL [place] # (Auto) (0-900) /uL Eos # (Auto) (0-450) /uL Baso # (Auto) (0-100) /uL PT (10.1-12.7) SECONDS INR (0.9-1.3) APTT (26.4-36.2) SECONDS ABG pH (7.35-7.45) ABG pCO2 (35-45) mmHg ABG pO2 (80-100) mmHg ABG HCO3 (22-26) mmol/L ABG Total CO2 (21-31) mmol/L ABG O2 Saturation (95-100) % ABG Base Excess (-2-2) mmol/L FiO2 Sodium (137-145) mmol/L Potassium (3.4-5.1) mmol/L Chloride (98-107) mmol/L Carbon Dioxide (22-32) mmol/L BUN (9-20) mg/dL Creatinine (0.66-1.25) mg/dL Estimated GFR (>60) mL/min BUN/Creatinine Ratio (6-22) Glucose (80-110) mg/dL Lactate (0.7-2.1) mmol/L Calcium (8.4-10.2) mg/dL Magnesium (1.6-2.3) mg/dL Total Bilirubin (0.2-1.3) mg/dL AST (17-59) IU/L ALT (<50) IU/L Alkaline Phosphatase (38-126) U/L Total Creatine Kinase 144 (55-170) U/L CK-MB (CK-2) 2.22 (<2.37) ng/mL CK-MB (CK-2) Rel Index 1.5 (1.5-5.0) % Troponin I < 0.012 (0.01-0.034) ng/mL NT-Pro-B Natriuret Pep 259 H (<125) pg/mL Total Protein (6.3-8.2) g/dL Albumin (3.5-5.0) g/dL Globulin (1.7-4.1) g/dL Albumin/Globulin Ratio (1.0-2.8) Procalcitonin 0.14 (<0.5) ng/mL SARS-CoV-2 (PCR) (Negative) 11/06/21 11/06/21 11/06/21 Range/Units 11:00 11:45 12:00 WBC (4.5-11.0) X10^3/uL RBC (4.5-5.9) X10^6/uL Hgb (13.5-17.5) g/dL Hct (41-53) % MCV (80-100) fL MCH (26-34) PG MCHC (30-36) % RDW (11.6-14.8) % Plt Count (150-400) X10^3/uL Neut % (Auto) (50-75) % Lymph % (Auto) (25-40) % [place] % (Auto) (3-14) % Eos % (Auto) (2-4) % Baso % (Auto) (0-2) % Neut # (Auto) (1769-5023) /uL Lymph # (Auto) (8287-1505) /uL [place] # (Auto) (0-900) /uL Eos # (Auto) (0-450) /uL Baso # (Auto) (0-100) /uL PT 21.4 H (10.1-12.7) SECONDS INR 1.9 H (0.9-1.3) APTT 37 H D (26.4-36.2) SECONDS ABG pH (7.35-7.45) ABG pCO2 (35-45) mmHg ABG pO2 (80-100) mmHg ABG HCO3 (22-26) mmol/L ABG Total CO2 (21-31) mmol/L ABG O2 Saturation (95-100) % ABG Base Excess (-2-2) mmol/L FiO2 Sodium (137-145) mmol/L Potassium (3.4-5.1) mmol/L Chloride (98-107) mmol/L Carbon Dioxide (22-32) mmol/L BUN (9-20) mg/dL Creatinine (0.66-1.25) mg/dL Estimated GFR (>60) mL/min BUN/Creatinine Ratio (6-22) Glucose (80-110) mg/dL Lactate (0.7-2.1) mmol/L Calcium (8.4-10.2) mg/dL Magnesium 2.2 (1.6-2.3) mg/dL Total Bilirubin (0.2-1.3) mg/dL AST (17-59) IU/L ALT (<50) IU/L Alkaline Phosphatase (38-126) U/L Total Creatine Kinase (55-170) U/L CK-MB (CK-2) (<2.37) ng/mL CK-MB (CK-2) Rel Index (1.5-5.0) % Troponin I (0.01-0.034) ng/mL NT-Pro-B Natriuret Pep (<125) pg/mL Total Protein (6.3-8.2) g/dL Albumin (3.5-5.0) g/dL Globulin (1.7-4.1) g/dL Albumin/Globulin Ratio (1.0-2.8) Procalcitonin (<0.5) ng/mL SARS-CoV-2 (PCR) Negative (Negative) 11/06/21 Range/Units 12:12 WBC (4.5-11.0) X10^3/uL RBC (4.5-5.9) X10^6/uL Hgb (13.5-17.5) g/dL Hct (41-53) % MCV (80-100) fL MCH (26-34) PG MCHC (30-36) % RDW (11.6-14.8) % Plt Count (150-400) X10^3/uL Neut % (Auto) (50-75) % Lymph % (Auto) (25-40) % [place] % (Auto) (3-14) % Eos % (Auto) (2-4) % Baso % (Auto) (0-2) % Neut # (Auto) (1408-5799) /uL Lymph # (Auto) (5128-9467) /uL [place] # (Auto) (0-900) /uL Eos # (Auto) (0-450) /uL Baso # (Auto) (0-100) /uL PT (10.1-12.7) SECONDS INR (0.9-1.3) APTT (26.4-36.2) SECONDS ABG pH 7.35 (7.35-7.45) ABG pCO2 71.2 H* (35-45) mmHg ABG pO2 76 L (80-100) mmHg ABG HCO3 39 H (22-26) mmol/L ABG Total CO2 41 H (21-31) mmol/L ABG O2 Saturation 93 L (95-100) % ABG Base Excess 13.0 H (-2-2) mmol/L FiO2 32 Sodium (137-145) mmol/L Potassium (3.4-5.1) mmol/L Chloride (98-107) mmol/L Carbon Dioxide (22-32) mmol/L BUN (9-20) mg/dL Creatinine (0.66-1.25) mg/dL Estimated GFR (>60) mL/min BUN/Creatinine Ratio (6-22) Glucose (80-110) mg/dL Lactate (0.7-2.1) mmol/L Calcium (8.4-10.2) mg/dL Magnesium (1.6-2.3) mg/dL Total Bilirubin (0.2-1.3) mg/dL AST (17-59) IU/L ALT (<50) IU/L Alkaline Phosphatase (38-126) U/L Total Creatine Kinase (55-170) U/L CK-MB (CK-2) (<2.37) ng/mL CK-MB (CK-2) Rel Index (1.5-5.0) % Troponin I (0.01-0.034) ng/mL NT-Pro-B Natriuret Pep (<125) pg/mL Total Protein (6.3-8.2) g/dL Albumin (3.5-5.0) g/dL Globulin (1.7-4.1) g/dL Albumin/Globulin Ratio (1.0-2.8) Procalcitonin (<0.5) ng/mL SARS-CoV-2 (PCR) (Negative) Imaging Data Chest x-ray: Radiologist's Impression: XRay Report Signed Patient: Leon Ashby MR#: [id number] : 1955 Acct:[id number] Age/Sex: 66 / M Date of Service: 11/06/21 Loc: ED Accession Number: [id number] ?? Procedure: XR chest 1V Ordering Provider: Chen Bowie D.O. PROCEDURE:? XR CHEST 1V ? INDICATIONS:? sob ? TECHNIQUE:? One view of the chest was acquired.? ? COMPARISON:? [facility], , XR CHEST 1 VIEW, 07/20/2021, 1:18. ? FINDINGS:? ? Surgical changes and devices:? None.? ? Lungs and pleura:? Trace costophrenic angle blunting.? There is overall appearance of increased pulmonary vascularity. ? Mediastinum:? Mediastinal contours appear normal.? Heart size is enlarged. ? Bones and chest wall:? No suspicious bony lesions.? Overlying soft tissues appear unremarkable.? S shaped scoliotic curvature is present. ? IMPRESSION:? Cardiomegaly with increased vascularity suggestive of edema.? Underlying areas of pneumonia cannot be excluded. ? ? Dictated by: Loli Ortega M.D. on 11/06/2021 at 13:36 ? ? Approved by: Loli Ortega M.D. on 11/06/2021 at 13:37 ? ECG Data Interpretation: Normal sinus rhythm rate 78 MN interval 170 QRS [address] changes or T- wave inversions similar to prior MDM Narrative Medical decision making narrative: Is had be hypoxic on room air he is not normally on home O2 but apparently does have a portable home oxygen take at home that he does not use. He is given albuterol which does not seem to help too much. He is given Solu-Medrol with his history of COPD. Does sound wet he does have some bilateral wheezing. He has no peripheral edema. BNP is 200. Chest x-ray does show possible edema. This is unlikely to be pulmonary embolism he is on Eliquis. He has no leukocytosis and a negative procalcitonin. At this time discussed with Dr. Cristobal hospitalist agrees with no antibiotics. The patient did not receive Lasix in the ED the although possibility of diastolic CHF. He is currently requiring multiple L of oxygen and will need admission. Discharge Plan Departure Patient Disposition: Admitted As Inpatient Clinical Impression: COPD exacerbation Admit Date/Time: 11/06/21 13:44 Admit Provider: Juli Cristobal
[2021-11-06 12:12] LABS: COVID19 -Nasal RAPID Negative (Negative)
[2021-11-06 12:24] LABS: Fractionated Inspired Oxygen 32; HCO3 ABG 39 mmol/L (22-26); Oxygen Saturation ABG 93 % (95-100); PCO2 ABG 71.2 mmHg (35-45); PO2 ABG 76 mmHg (80-100); TCO2 ABG 41 mmol/L (21-31); pH ABG 7.35 (7.35-7.45)
[2021-11-06 12:25] LABS: Add Manual Diff / Slide Review NO; Basophils Absolute Auto 0 /uL (0-100); Basophils Percent Auto 0.4 % (0-2); Eosinophils Absolute Auto 100 /uL (0-450); Eosinophils Percent Auto 1.1 % (2-4); Hematocrit 48.8 % (41-53); Hemoglobin 16.4 g/dL (13.5-17.5); Lymphocytes Absolute Auto 1100 /uL (1100-4500); Mean Corpuscular HGB Conc 33.5 % (30-36); Mean Corpuscular Hemoglobin 30.5 PG (26-34); Monocytes Absolute Auto 1300 /uL (0-900); Monocytes Percent Auto 15.1 % (3-14); Neutrophils Absolute Auto 5900 /uL (1500-7000); Neutrophils Percent Auto 70.4 % (50-75); Platelet Count 168 X10^3/uL (150-400); Red Blood Cell Count 5.36 X10^6/uL (4.5-5.9); White Blood Cell Count 8.4 X10^3/uL (4.5-11.0)
[2021-11-06] MEDS: ALBUTEROL/IPRATROPIUM 3 ML AMPUL INH (12:27)
[2021-11-06 12:33] LABS: INR 1.9 (0.9-1.3); Prothrombin Time 21.4 SECONDS (10.1-12.7)
[2021-11-06 12:35] LABS: PTT Partial Thromboplastin Tim 37 SECONDS (26.4-36.2)
[2021-11-06 12:40] LABS: Lactate (Lactic Acid) 0.9 mmol/L (0.7-2.1)
[2021-11-06 12:41] LABS: Creatine Kinase 144 U/L (55-170)
[2021-11-06] MEDS: ALBUTEROL/IPRATROPIUM 3 ML AMPUL 6 ML INH (12:42)
[2021-11-06 12:43] LABS: Alanine Aminotransferase 27 IU/L (<50); Albumin 4.3 g/dL (3.5-5.0); Albumin Globulin Ratio 1.4 (1.0-2.8); Alkaline Phosphatase 57 U/L (38-126); Aspartate Aminotransferase 40 IU/L (17-59); BUN Creatinine Ratio 22.1 (6-22); Bilirubin Total 0.5 mg/dL (0.2-1.3); Blood Urea Nitrogen 21 mg/dL (9-20); Chloride 97 mmol/L (98-107); Estimated Glomerular Filt Rate > 60 mL/min (>60); Glucose 104 mg/dL (80-110); HEMOLYSIS 16 (0-50); Potassium 3.5 mmol/L (3.4-5.1); Sodium 141 mmol/L (137-145); Total Protein 7.3 g/dL (6.3-8.2)
[2021-11-06 12:51] LABS: Carbon Dioxide 39 mmol/L (22-32)
--- NOTE | 2021-11-06 12:51 | DI.RAD.S_ITS ---
PROCEDURE: XR CHEST 1V INDICATIONS: sob TECHNIQUE: One view of the chest was acquired. COMPARISON: [facility], CR, XR CHEST 1 VIEW, 07/20/2021, 1:18. FINDINGS: Surgical changes and devices: None. Lungs and pleura: Trace costophrenic angle blunting. There is overall appearance of increased pulmonary vascularity. Mediastinum: Mediastinal contours appear normal. Heart size is enlarged. Bones and chest wall: No suspicious bony lesions. Overlying soft tissues appear unremarkable. S shaped scoliotic curvature is present. IMPRESSION: Cardiomegaly with increased vascularity suggestive of edema. Underlying areas of pneumonia cannot be excluded. Dictated by: Loli Ortega M.D. on 11/06/2021 at 13:36 Approved by: Loli Ortega M.D. on 11/06/2021 at 13:37
[2021-11-06 12:52] LABS: NT-proBNP (BNP-Adult 18+) 259 pg/mL (<125)
[2021-11-06 12:54] LABS: Troponin I < 0.012 ng/mL (0.01-0.034)
[2021-11-06 12:57] LABS: CKMB % Relative Index 1.5 % (1.5-5.0); Creatine Kinase MB 2.22 ng/mL (<2.37)
[2021-11-06] MEDS: methylPREDNISolone 125 MG/2 ML VIAL IV (12:57)
[2021-11-06 12:59] LABS: Procalcitonin 0.14 ng/mL (<0.5)
[2021-11-06] MEDS: ALBUTEROL 2.5 MG/3 ML NEB (ADULT) INH (15:06)
--- NOTE | 2021-11-06 16:17 | PM.PN.1 ---
Subjective Subjective Date Patient Seen: 11/06/21 Interval history: 66-year-old gentleman with COPD, severe P 80 status post right upper extremities stent, abdominal aortic aneurysm with repair, hypertension, hyperlipidemia, chronically anticoagulated who presented today with shortness of breath. Over the past 3-4 days he has been having night sweats and a productive cough. No orthopnea or swelling. He has been more short of breath than baseline. Shortness of breath is worsened with exertion. On arrival to the Emergency Department, his O2 sats were 86% on room air they improved to the low to mid 90s on 3 liters/minute. Chest x-ray was done which revealed cardiomegaly with increased vascularity suggesting edema. Underlying areas of pneumonia could not be excluded. CBC revealed a normal white count of 8.4, hemoglobin 16.4, hematocrit 40.8, platelets 168. INR 1.9. ABG was performed with a pH is 7.35, pCO2 71.2, PO2 76, bicarb 39, saturation 93%. Chemistry revealed a sodium of 141, potassium 3.5, chloride 97, bicarb 39, BUN 21, creatinine 0.95, glucose 104. LFTs were within normal limits. BNP was 259. Procalcitonin 0.14. Cardiac enzymes were negative x1. COVID test was negative. EKG revealed no acute ST or T-wave changes. Patient was given IV Solu-Medrol 125 mg as well as DuoNebs x2 and and albuterol nebulizer as well. Admission was recommended. Patient denies any chest pain is not any ordered sputum. He has clear. He has had some low-grade fevers in the 99-99.5 inch. Of the 3 nights prior to admission, he states he felt feverish and had to use ice packs around his head and neck and would wake up diaphoretic. He has not had any ill exposures. He has been vaccinated been boosted for COVID. He does report he had some constipation which resolved yesterday with the use of suppositories. Constipation is a very rare issue for him. He has been eating and drinking well. No difficulties with urination. No leg edema. ROS: All other systems were reviewed negative Exam Vital Signs (past 8 hours): - 11/06/21 11:33 11/06/21 11:59 11/06/21 12:00 Temperature 99.0 F Pulse Rate 87 80 80 Respiratory Rate 20 26 H 28 H Blood Pressure 143/90 H Pulse Oximetry 86 L 93 95 Oxygen Delivery Method Room Air Nasal Cannula Nasal Cannula Oxygen Flow Rate 5 3 Fraction of Inspired Oxygen 11/06/21 12:27 11/06/21 12:42 11/06/21 12:15 Temperature Pulse Rate 81 80 Respiratory Rate 20 18 Blood Pressure 160/99 H Pulse Oximetry 94 94 Oxygen Delivery Method Nasal Cannula Nasal Cannula Oxygen Flow Rate 3 3 Fraction of Inspired Oxygen 11/06/21 12:15 11/06/21 12:30 11/06/21 12:30 Temperature Pulse Rate 80 79 Respiratory Rate 25 H Blood Pressure 153/100 H Pulse Oximetry 94 95 Oxygen Delivery Method Oxygen Flow Rate Fraction of Inspired Oxygen 11/06/21 12:45 11/06/21 13:00 11/06/21 13:00 Temperature Pulse Rate 82 83 Respiratory Rate Blood Pressure 145/92 H Pulse Oximetry 96 90 L Oxygen Delivery Method Nasal Cannula Oxygen Flow Rate 3 Fraction of Inspired Oxygen 11/06/21 15:06 11/06/21 13:15 11/06/21 13:30 Temperature Pulse Rate 87 86 87 Respiratory Rate 26 H Blood Pressure Pulse Oximetry 88 L 94 90 L Oxygen Delivery Method Nasal Cannula Nasal Cannula Oxygen Flow Rate 5 4 Fraction of Inspired Oxygen 40 11/06/21 13:36 11/06/21 13:36 11/06/21 13:45 Temperature Pulse Rate 85 83 Respiratory Rate Blood Pressure 132/78 Pulse Oximetry 90 L 93 Oxygen Delivery Method Oxygen Flow Rate Fraction of Inspired Oxygen 11/06/21 14:00 11/06/21 14:00 11/06/21 14:15 Temperature Pulse Rate 88 85 Respiratory Rate Blood Pressure 149/73 H Pulse Oximetry 89 L 88 L Oxygen Delivery Method Nasal Cannula Oxygen Flow Rate 4 Fraction of Inspired Oxygen 11/06/21 14:30 11/06/21 14:30 11/06/21 14:45 Temperature Pulse Rate 83 85 Respiratory Rate Blood Pressure 135/79 Pulse Oximetry 93 88 L Oxygen Delivery Method Nasal Cannula Oxygen Flow Rate 4 Fraction of Inspired Oxygen 11/06/21 15:00 11/06/21 15:00 11/06/21 15:15 Temperature Pulse Rate 85 88 Respiratory Rate Blood Pressure 145/88 H Pulse Oximetry 90 L 91 Oxygen Delivery Method Nasal Cannula Oxygen Flow Rate 4 Fraction of Inspired Oxygen 11/06/21 15:30 11/06/21 15:30 11/06/21 15:45 Temperature Pulse Rate 86 85 Respiratory Rate Blood Pressure 160/83 H Pulse Oximetry 90 L 92 Oxygen Delivery Method Nasal Cannula Oxygen Flow Rate 4 Fraction of Inspired Oxygen Fraction of Inspired Oxygen 40 Oxygen Delivery Method Nasal Cannula Oxygen Flow Rate 4 Narrative Exam Narrative: GEN: Very pleasant middle aged male, flushed, Alert and oriented x3, mildly dyspneic at rest HEENT: Normocephalic, face symmetric, pupils equal round reactive to light, extraocular movements intact, sclerae anicteric, conjunctiva clear, nares patent, oropharynx reveals an intact soft and hard palate with moist mucous membranes, dentition is fair NECK: Supple, no lymphadenopathy, thyroid without enlargement or nodularity, carotids no bruits CHEST: Respiratory excursions symmetric, very tight bilateral expiratory wheezes CV: Regular rate and rhythm, no murmurs, rubs, gallops, PMI nondisplaced ABD: Soft, nontender, nondistended, bowel sounds present in all 4 quadrants, no organomegaly or masses appreciated EXTR: Warm, well perfused, no clubbing/cyanosis/edema SKIN: Warm and dry, without rash NEURO: Alert and oriented x3, cranial nerves 2 through 12 are intact and symmetric bilaterally, motor strength 5/5 throughout, sensation intact throughout PSYCH: Mood and affect is within normal limits, judgment and insight are appropriate Objective Labs Result Diagrams: 11/06/21 11:00 11/06/21 11:00 Labs: Laboratory Results - last 24 hr 11/06/21 11/06/21 11/06/21 11:00 11:00 11:00 WBC 8.4 RBC 5.36 Hgb 16.4 Hct 48.8 MCV 91.0 MCH 30.5 MCHC 33.5 RDW 14.0 Plt Count 168 Neut % (Auto) 70.4 Lymph % (Auto) 13.0 L [place] % (Auto) 15.1 H Eos % (Auto) 1.1 L Baso % (Auto) 0.4 Neut # (Auto) 5900 Lymph # (Auto) 1100 [place] # (Auto) 1300 H Eos # (Auto) 100 Baso # (Auto) 0 PT INR APTT ABG pH ABG pCO2 ABG pO2 ABG HCO3 ABG Total CO2 ABG O2 Saturation ABG Base Excess FiO2 Sodium 141 Potassium 3.5 Chloride 97 L Carbon Dioxide 39 H BUN 21 H Creatinine 0.95 Estimated GFR > 60 BUN/Creatinine Ratio 22.1 H Glucose 104 Lactate 0.9 Calcium 9.0 Total Bilirubin 0.5 AST 40 ALT 27 Alkaline Phosphatase 57 Total Creatine Kinase CK-MB (CK-2) CK-MB (CK-2) Rel Index Troponin I NT-Pro-B Natriuret Pep Total Protein 7.3 Albumin 4.3 Globulin 3.0 Albumin/Globulin Ratio 1.4 Procalcitonin SARS-CoV-2 (PCR) 11/06/21 11/06/21 11/06/21 11:00 11:00 11:00 WBC RBC Hgb Hct MCV MCH MCHC RDW Plt Count Neut % (Auto) Lymph % (Auto) [place] % (Auto) Eos % (Auto) Baso % (Auto) Neut # (Auto) Lymph # (Auto) [place] # (Auto) Eos # (Auto) Baso # (Auto) PT INR APTT ABG pH ABG pCO2 ABG pO2 ABG HCO3 ABG Total CO2 ABG O2 Saturation ABG Base Excess FiO2 Sodium Potassium Chloride Carbon Dioxide BUN Creatinine Estimated GFR BUN/Creatinine Ratio Glucose Lactate Calcium Total Bilirubin AST ALT Alkaline Phosphatase Total Creatine Kinase 144 CK-MB (CK-2) 2.22 CK-MB (CK-2) Rel Index 1.5 Troponin I < 0.012 NT-Pro-B Natriuret Pep 259 H Total Protein Albumin Globulin Albumin/Globulin Ratio Procalcitonin 0.14 SARS-CoV-2 (PCR) 11/06/21 11/06/21 11/06/21 11:00 11:45 12:12 WBC RBC Hgb Hct MCV MCH MCHC RDW Plt Count Neut % (Auto) Lymph % (Auto) [place] % (Auto) Eos % (Auto) Baso % (Auto) Neut # (Auto) Lymph # (Auto) [place] # (Auto) Eos # (Auto) Baso # (Auto) PT 21.4 H INR 1.9 H APTT 37 H D ABG pH 7.35 ABG pCO2 71.2 H* ABG pO2 76 L ABG HCO3 39 H ABG Total CO2 41 H ABG O2 Saturation 93 L ABG Base Excess 13.0 H FiO2 32 Sodium Potassium Chloride Carbon Dioxide BUN Creatinine Estimated GFR BUN/Creatinine Ratio Glucose Lactate Calcium Total Bilirubin AST ALT Alkaline Phosphatase Total Creatine Kinase CK-MB (CK-2) CK-MB (CK-2) Rel Index Troponin I NT-Pro-B Natriuret Pep Total Protein Albumin Globulin Albumin/Globulin Ratio Procalcitonin SARS-CoV-2 (PCR) Negative [facility] Medical History (Updated 11/06/21 @ 13:26 by Chen Bowie DO) Abdominal aortic aneurysm Axillary artery thrombosis, right COPD (chronic obstructive pulmonary disease) Hyperlipidemia Hypertension Patent foramen ovale Peripheral vascular disease Radial artery occlusion, right Surgical History History of abdominal aortic aneurysm repair History of carpal tunnel release of both wrists Hx of cholecystectomy Social History Smoking Status: Current every day smoker Comment: Additional past medical history: Chronic suppressive therapy with doxycycline for prior vein graft infection with what sounds like passed around last Family history: Mother of a brain aneurysm at age 86 He does not know his father's history Social history: Patient smokes 1 pack per day for last 50 years. No alcohol use. He is . Lives in [place], [place]. Assessment & Plan Assessment & Plan narrative: 1. COPD exacerbation Patient presents with an acute COPD exacerbation which has escalated over the last several days. He has continued to smoke. He does have some low-grade fever and diaphoresis. He may have an atypical infection. Although he is on doxycycline chronically for suppressive therapy, I will discontinue that and place him on IV azithromycin for its anti-inflammatory effect. Continue IV steroids. Will place on Pulmicort and formoterol nebulizers. DuoNebs as needed. 2. Acute on chronic hypoxic respiratory failure ABG does show evidence of compensation with a pCO2 of 71 and normal pH. Bicarb is elevated. This is all consistent with chronic respiratory failure. Patient presented with oxygen saturation of 86% on room air. While I was in the room he does decreased from 90-88% on 3 liters/minute with conversation. Etiology is COPD exacerbation. There is again possible underlying atypical infection. He may need to discharge home with oxygen therapy. 3. Severe PAD Patient is has longstanding history of vasculopathy. He describes having had an aortobifem in the past, previously ruptured triple a, as well as right upper extremity stenting. 4. Hypertension Blood pressure is presently elevated. Await medication reconciliation. 5. Hyperlipidemia Await medication reconciliation. 6. Diabetes mellitus type 2 His prescribed metformin at baseline. Will place on fingersticks and sliding scale as well as a control carb diet. Code status In the event of a cardiac arrest, patient declines chest compressions. However for isolated respiratory failure situation, he would be amenable to short-term intubation mechanical ventilation. Prophylaxis Low Yoli score Disposition Admit to acute care. Anticipate 2-3 day hospital stay. Time Spent With Patient Critical Care time: I spent a total of [] minutes of critical care time on this patient's care today; this time is exclusive of procedural time.
[2021-11-06 17:32] LABS: Magnesium 2.2 mg/dL (1.6-2.3)
[2021-11-06] MEDS: AZITHROMYCIN 500 MG in DEXTROSE 5% IN WATER 250 ML 250 MG IV (17:52)
[2021-11-06] MEDS: methylPREDNISolone 125 MG/2 ML VIAL 80 MG IV (18:25)
[2021-11-06] MEDS: IPRATROPIUM 0.5 MG/2.5 ML NEB INH ×2 (19:56→22:59)
[2021-11-06] MEDS: BUDESONIDE 0.5 MG/2 ML NEB INH (19:56)
[2021-11-06] MEDS: SENNOSIDES 8.6 MG TABLET 17.2 MG PO (21:30)
[2021-11-06] MEDS: DOCUSATE 100 MG CAPSULE PO (21:30)
[2021-11-06] MEDS: INSULIN LISPRO 100 UNIT/ML 3ML VIAL SUBCUT (22:21)
[2021-11-07] VITALS (12 sets, daily range): BP systolic 117–122; BP diastolic 75–82; PULSE 68–83; RESP 18–20; TEMP 36.4–37; O2SAT 87–97
[2021-11-07] MEDS: methylPREDNISolone 125 MG/2 ML VIAL 80 MG IV ×2 (00:34→05:51)
[2021-11-07] MEDS: IPRATROPIUM 0.5 MG/2.5 ML NEB INH ×6 (03:05→22:41)
[2021-11-07 06:22] LABS: BUN Creatinine Ratio 28.7 (6-22); Blood Urea Nitrogen 27 mg/dL (9-20); Calcium 8.6 mg/dL (8.4-10.2); Carbon Dioxide 38 mmol/L (22-32); Chloride 98 mmol/L (98-107); Estimated Glomerular Filt Rate > 60 mL/min (>60); Glucose 200 mg/dL (80-110); HEMOLYSIS < 15 (0-50); Sodium 140 mmol/L (137-145)
[2021-11-07 06:27] LABS: Add Manual Diff / Slide Review NO; Basophils Absolute Auto 0 /uL (0-100); Basophils Percent Auto 0.1 % (0-2); Eosinophils Absolute Auto 0 /uL (0-450); Hematocrit 45.2 % (41-53); Hemoglobin 14.8 g/dL (13.5-17.5); Lymphocytes Absolute Auto 600 /uL (1100-4500); Lymphocytes Percent Auto 7.6 % (25-40); Mean Corpuscular HGB Conc 32.8 % (30-36); Mean Corpuscular Volume 91.6 fL (80-100); Monocytes Absolute Auto 300 /uL (0-900); Neutrophils Absolute Auto 7100 /uL (1500-7000); Neutrophils Percent Auto 88.3 % (50-75); Platelet Count 163 X10^3/uL (150-400); Red Blood Cell Count 4.94 X10^6/uL (4.5-5.9); Red Cell Distribution Width 14.1 % (11.6-14.8); White Blood Cell Count 8.1 X10^3/uL (4.5-11.0)
[2021-11-07] MEDS: BUDESONIDE 0.5 MG/2 ML NEB INH ×2 (07:29→18:56)
[2021-11-07] MEDS: lisinopriL 20 MG TABLET 40 MG PO (08:21)
[2021-11-07] MEDS: AMLODIPINE 5 MG TABLET 10 MG PO (08:21)
[2021-11-07] MEDS: METOPROLOL ER 50 MG TABLET PO (08:22)
[2021-11-07] MEDS: ASPIRIN EC 81 MG TABLET PO (08:22)
[2021-11-07] MEDS: DOCUSATE 100 MG CAPSULE PO ×2 (08:22→21:41)
[2021-11-07] MEDS: APIXABAN 5 MG TABLET PO ×2 (08:22→21:39)
[2021-11-07] MEDS: INSULIN LISPRO 100 UNIT/ML 3ML VIAL SUBCUT ×4 (08:27→21:44)
[2021-11-07] MEDS: INSULIN GLARGINE 100 UNIT/ML 3ML PEN SUBCUT (08:30)
--- NOTE | 2021-11-07 09:20 | P.PN_ITS ---
Subjective Subjective Date Patient Seen: 11/07/21 Interval history: 66-year-old gentleman with COPD, severe PAD status post right upper extremities stent, abdominal aortic aneurysm with repair, hypertension, hyperlipidemia, chronically anticoagulated who presented to the ED yesterday with shortness of breath. He was admitted w/a COPD exacerbation and acute/chronic hypoxic resp failure. He was initiated on IV steroids, budesonide nebs, duonebs, and supplemental O2. Initially he was requiring 3lpm. Now up to 4-5LPM. Pt reports he is feeling better today, less SOB. Didn't sleep much overnight. He expresses concern about not getting his home meds. Exam Vital Signs (past 8 hours): - 11/07/21 06:00 11/07/21 07:35 11/07/21 07:40 Temperature 97.7 F Pulse Rate Respiratory Rate 18 Blood Pressure Pulse Oximetry 87 L 92 Oxygen Delivery Method Nasal Cannula Nasal Cannula Oxygen Flow Rate 5 5 11/07/21 08:21 11/07/21 08:22 Temperature Pulse Rate 72 72 Respiratory Rate Blood Pressure 120/79 120/79 Pulse Oximetry Oxygen Delivery Method Oxygen Flow Rate Fraction of Inspired Oxygen 40 Oxygen Delivery Method Nasal Cannula Oxygen Flow Rate 5 Narrative Exam Narrative: GEN:? Very pleasant middle aged male, Alert and oriented x3,NAD HEENT:? Normocephalic, face symmetric CHEST:? Respiratory excursions symmetric, scattered wheezes, coarse throughout, improved breath sounds throughout CV:? Regular rate and rhythm, no murmurs, rubs, gallops, PMI nondisplaced ABD:? Soft, nontender, nondistended, bowel sounds present in all 4 quadrants, no organomegaly or masses appreciated EXTR:? Warm, well perfused, no clubbing/cyanosis/edema SKIN:? Warm and dry, without rash NEURO:? Alert and oriented x3, grossly intact PSYCH:? Mood and affect is within normal limits, judgment and insight are appropriate Objective Labs Result Diagrams: 11/07/21 05:45 11/07/21 05:45 Labs: Laboratory Results - last 24 hr 11/06/21 11/06/21 11/06/21 11:00 11:00 11:00 WBC 8.4 RBC 5.36 Hgb 16.4 Hct 48.8 MCV 91.0 MCH 30.5 MCHC 33.5 RDW 14.0 Plt Count 168 Neut % (Auto) 70.4 Lymph % (Auto) 13.0 L [place] % (Auto) 15.1 H Eos % (Auto) 1.1 L Baso % (Auto) 0.4 Neut # (Auto) 5900 Lymph # (Auto) 1100 [place] # (Auto) 1300 H Eos # (Auto) 100 Baso # (Auto) 0 PT INR APTT ABG pH ABG pCO2 ABG pO2 ABG HCO3 ABG Total CO2 ABG O2 Saturation ABG Base Excess FiO2 Sodium 141 Potassium 3.5 Chloride 97 L Carbon Dioxide 39 H BUN 21 H Creatinine 0.95 Estimated GFR > 60 BUN/Creatinine Ratio 22.1 H Glucose 104 Lactate 0.9 Calcium 9.0 Magnesium Total Bilirubin 0.5 AST 40 ALT 27 Alkaline Phosphatase 57 Total Creatine Kinase CK-MB (CK-2) CK-MB (CK-2) Rel Index Troponin I NT-Pro-B Natriuret Pep Total Protein 7.3 Albumin 4.3 Globulin 3.0 Albumin/Globulin Ratio 1.4 Procalcitonin SARS-CoV-2 (PCR) 11/06/21 11/06/21 11/06/21 11:00 11:00 11:00 WBC RBC Hgb Hct MCV MCH MCHC RDW Plt Count Neut % (Auto) Lymph % (Auto) [place] % (Auto) Eos % (Auto) Baso % (Auto) Neut # (Auto) Lymph # (Auto) [place] # (Auto) Eos # (Auto) Baso # (Auto) PT INR APTT ABG pH ABG pCO2 ABG pO2 ABG HCO3 ABG Total CO2 ABG O2 Saturation ABG Base Excess FiO2 Sodium Potassium Chloride Carbon Dioxide BUN Creatinine Estimated GFR BUN/Creatinine Ratio Glucose Lactate Calcium Magnesium Total Bilirubin AST ALT Alkaline Phosphatase Total Creatine Kinase 144 CK-MB (CK-2) 2.22 CK-MB (CK-2) Rel Index 1.5 Troponin I < 0.012 NT-Pro-B Natriuret Pep 259 H Total Protein Albumin Globulin Albumin/Globulin Ratio Procalcitonin 0.14 SARS-CoV-2 (PCR) 11/06/21 11/06/21 11/06/21 11:00 11:45 12:00 WBC RBC Hgb Hct MCV MCH MCHC RDW Plt Count Neut % (Auto) Lymph % (Auto) [place] % (Auto) Eos % (Auto) Baso % (Auto) Neut # (Auto) Lymph # (Auto) [place] # (Auto) Eos # (Auto) Baso # (Auto) PT 21.4 H INR 1.9 H APTT 37 H D ABG pH ABG pCO2 ABG pO2 ABG HCO3 ABG Total CO2 ABG O2 Saturation ABG Base Excess FiO2 Sodium Potassium Chloride Carbon Dioxide BUN Creatinine Estimated GFR BUN/Creatinine Ratio Glucose Lactate Calcium Magnesium 2.2 Total Bilirubin AST ALT Alkaline Phosphatase Total Creatine Kinase CK-MB (CK-2) CK-MB (CK-2) Rel Index Troponin I NT-Pro-B Natriuret Pep Total Protein Albumin Globulin Albumin/Globulin Ratio Procalcitonin SARS-CoV-2 (PCR) Negative 11/06/21 11/07/21 11/07/21 12:12 05:45 05:45 WBC 8.1 RBC 4.94 Hgb 14.8 Hct 45.2 MCV 91.6 MCH 30.0 MCHC 32.8 RDW 14.1 Plt Count 163 Neut % (Auto) 88.3 H Lymph % (Auto) 7.6 L [place] % (Auto) 4.0 Eos % (Auto) 0.0 L Baso % (Auto) 0.1 Neut # (Auto) 7100 H Lymph # (Auto) 600 L [place] # (Auto) 300 Eos # (Auto) 0 Baso # (Auto) 0 PT INR APTT ABG pH 7.35 ABG pCO2 71.2 H* ABG pO2 76 L ABG HCO3 39 H ABG Total CO2 41 H ABG O2 Saturation 93 L ABG Base Excess 13.0 H FiO2 32 Sodium 140 Potassium 4.0 Chloride 98 Carbon Dioxide 38 H BUN 27 H Creatinine 0.94 Estimated GFR > 60 BUN/Creatinine Ratio 28.7 H Glucose 200 H Lactate Calcium 8.6 Magnesium Total Bilirubin AST ALT Alkaline Phosphatase Total Creatine Kinase CK-MB (CK-2) CK-MB (CK-2) Rel Index Troponin I NT-Pro-B Natriuret Pep Total Protein Albumin Globulin Albumin/Globulin Ratio Procalcitonin SARS-CoV-2 (PCR) [facility] Medical History (Updated 11/06/21 @ 13:26 by Chen Bowie DO) Abdominal aortic aneurysm Axillary artery thrombosis, right COPD (chronic obstructive pulmonary disease) Hyperlipidemia Hypertension Patent foramen ovale Peripheral vascular disease Radial artery occlusion, right Surgical History History of abdominal aortic aneurysm repair History of carpal tunnel release of both wrists Hx of cholecystectomy Social History household members: spouse Smoking Status: Current every day smoker Assessment & Plan Assessment & Plan narrative: 1. COPD exacerbation Patient presented with an acute COPD exacerbation which has escalated over the last several days.? He has continued to smoke.? He was having some low-grade fev ers and diaphoresis. He is on chronic suppressive therapy w/doxycycline for vascular stent/graft infection. This was held and he was placed on IV azithromycin on admission for anti-inflammatory benefit. Will transition from 80 mg IV q6 solumedrol to 40 mg IV q8 today. Continue pulmicort nebs. F ormoterol not on formulary. Continue scheduled and PRN duonebs. 2. Acute on chronic hypoxic respiratory failure ABG showed chronic hypercarbia w/ compensation with a pCO2 of 71, elevated bicarb and normal pH?consistent with chronic respiratory failure.? Patient presented with oxygen saturation of 86% on room air.? Initially he required 3lpm. Now up to 4-5lpm. 3. Severe PAD Patient is has longstanding history of vasculopathy.? He describes having had an aortobifem in the past, previously ruptured triple a, as well as right upper extremity stenting. As noted, he remains on suppressive therapy for prior stent/graft infection d/t cat saliva. 4. Hypertension Blood pressure now normotensive. Chlorthalidone is listed on home meds but has not yet been confirmed. He is on metoprolol, lisinopril and amlodipine. 5. Hyperlipidemia Continue atorvastatin. 6. Diabetes mellitus type 2 His prescribed metformin at baseline.? Some elevated blood sugars d/t steroids. Will start low dose Lantus 5 units daily today. Code status In the event of a cardiac arrest, patient declines chest compressions.? However for isolated respiratory failure situation, he would be amenable to short-term intubation mechanical ventilation. Prophylaxis Low Yoli score Disposition Weaning steroids. Pt hopes to dc home tomorrow. Would d/c home w/pumicort, fomoterol, prednisone taper and supplemental O2. Time Spent With Patient Critical Care time: I spent a total of [] minutes of critical care time on this patient's care today; this time is exclusive of procedural time.
[2021-11-07] MEDS: methylPREDNISolone 125 MG/2 ML VIAL 40 MG IV ×2 (14:05→21:38)
[2021-11-07] MEDS: AZITHROMYCIN 500 MG in DEXTROSE 5% IN WATER 250 ML 250 MG IV (17:31)
[2021-11-07] MEDS: ATORVASTATIN 20 MG TABLET 10 MG PO (21:39)
[2021-11-07] MEDS: SENNOSIDES 8.6 MG TABLET 17.2 MG PO (21:39)
[2021-11-08] VITALS (13 sets, daily range): BP systolic 120–134; BP diastolic 79–90; PULSE 72–89; RESP 18–21; TEMP 36.5–37.3; O2SAT 90–93
[2021-11-08] MEDS: methylPREDNISolone 125 MG/2 ML VIAL 40 MG IV (05:55)
--- NOTE | 2021-11-08 08:35 | P.PN_ITS ---
Subjective Subjective Date Patient Seen: 11/08/21 Time Patient Seen: 09:00 Interval history: Patient has girlfriend at bedside. He states he is having some chest pain which is substernal and heavy, nonradiating. Has had chest pain like this once before a year ago. He continues on 6 L of oxygen. Exam Vital Signs (past 8 hours): - 11/08/21 04:00 11/08/21 06:13 Temperature 97.7 F Pulse Rate 89 Respiratory Rate 18 Blood Pressure 120/79 Pulse Oximetry 92 92 Oxygen Delivery Method Nasal Cannula Humidification Oxygen Flow Rate 6 6 Fraction of Inspired Oxygen 40 Oxygen Delivery Method Nasal Cannula,Humidification Oxygen Flow Rate 6 Narrative Exam Narrative: GEN:? Very pleasant middle aged male, Alert and oriented x3,NAD HEENT:? Normocephalic, face symmetric CHEST:? Respiratory excursions symmetric, scattered wheezes CV:? Regular rate and rhythm, no murmurs, rubs, gallops, PMI nondisplaced ABD:? Soft, nontender, nondistended, bowel sounds present in all 4 quadrants, no organomegaly or masses appreciated EXTR:? Warm, well perfused, no clubbing/cyanosis/edema SKIN:? Warm and dry, without rash NEURO:? Alert and oriented x3, grossly intact PSYCH:? Mood and affect is within normal limits, judgment and insight are appropriate Objective Labs Result Diagrams: 11/08/21 10:08 11/08/21 10:08 [facility] Medical History Abdominal aortic aneurysm Axillary artery thrombosis, right COPD (chronic obstructive pulmonary disease) Hyperlipidemia Hypertension Patent foramen ovale Peripheral vascular disease Radial artery occlusion, right Surgical History History of abdominal aortic aneurysm repair History of carpal tunnel release of both wrists Hx of cholecystectomy Social History household members: spouse Smoking Status: Current every day smoker Assessment & Plan Assessment & Plan narrative: 1. COPD exacerbation Patient presented with an acute COPD exacerbation which has escalated over the last several days.? He has continued to smoke.? He was having some low-grade fevers and diaphoresis. He is on chronic suppressive therapy w/doxycycline for vascular stent/graft infection. This was held and he was placed on IV azithromycin on admission for anti-inflammatory benefit. Will transition from solu-medrol 40 mg IV q8 to prednisone po 40mg daily x5 days. Continue pulmicort nebs. Formoterol not on formulary. Continue scheduled and PRN duonebs. 2. Acute on chronic hypoxic respiratory failure ABG showed chronic hypercarbia w/ compensation with a pCO2 of 71, elevated bicarb and normal pH?consistent with chronic respiratory failure.? Patient presented with oxygen saturation of 86% on room air.? Initially he required 3lpm. Now up to 6L NC. -Obtain CTA chest to rule out PE as patient notes noncompliance with home eliquis -Home O2 eval -Give dose 20mg IV lasix as CXR had pulm edema 3. Severe PAD Patient is has longstanding history of vasculopathy.? He describes having had an aortobifem in the past, previously ruptured triple a, as well as right upper extremity stenting. As noted, he remains on suppressive therapy for prior stent/graft infection d/t cat saliva. 4. Hypertension Blood pressure now normotensive. Chlorthalidone is listed on home meds but has not yet been confirmed. He is on metoprolol, lisinopril and amlodipine. 5. Hyperlipidemia Continue atorvastatin. 6. Diabetes mellitus type 2 His prescribed metformin at baseline.? Some elevated blood sugars d/t steroids. -A1c 6.8% -Increase lantus to 10 units daily due to elevated BG from steroids 7. Chest pain, not present on admission -Substernal heavy pressure, non-radiating and occured at rest on 11/08 -ECG without ST changes, initial troponin negative. Recheck pending. -CTA chest as above to rule out PE and AAA as patient has h/o AAA repair at [facility] 8. History of AAA repair -Done at [facility], patient cannot remember vascular surgeon's name -Supposed to have q2 year abd US, but patient skipped last screening and is due for US now -CTA abd pelvis to assess AAA repair 9. Tobacco dependence -Patient is 50 pack year smoker -I spent 11 minutes counseling patient on smoking cessation Code status In the event of a cardiac arrest, patient declines chest compressions.? However for isolated respiratory failure situation, he would be amenable to short-term intubation mechanical ventilation. Proxy is girlfriend [place]. Prophylaxis Low Yoli score Disposition [facility] home tomorrow if CTA negative and home O2 eval complete. Time Spent With Patient Critical Care time: I spent a total of [] minutes of critical care time on this patient's care today; this time is exclusive of procedural time.
[2021-11-08] MEDS: BUDESONIDE 0.5 MG/2 ML NEB INH ×2 (08:39→19:15)
[2021-11-08] MEDS: ALBUTEROL/IPRATROPIUM 3 ML AMPUL INH (08:39)
[2021-11-08] MEDS: ASPIRIN EC 81 MG TABLET PO (08:45)
[2021-11-08] MEDS: lisinopriL 20 MG TABLET 40 MG PO (08:45)
[2021-11-08] MEDS: INSULIN LISPRO 100 UNIT/ML 3ML VIAL SUBCUT ×4 (08:45→22:15)
[2021-11-08] MEDS: APIXABAN 5 MG TABLET PO ×2 (08:45→20:32)
[2021-11-08] MEDS: INSULIN GLARGINE 100 UNIT/ML 3ML PEN SUBCUT (08:46)
[2021-11-08] MEDS: DOCUSATE 100 MG CAPSULE PO ×2 (08:47→20:32)
[2021-11-08] MEDS: METOPROLOL ER 50 MG TABLET PO (08:47)
[2021-11-08] MEDS: predniSONE 20 MG TABLET 40 MG PO (08:57)
[2021-11-08] MEDS: FUROSEMIDE 20 MG/2 ML VIAL IV (08:57)
[2021-11-08] MEDS: AMLODIPINE 5 MG TABLET 10 MG PO (09:05)
[2021-11-08 10:16] LABS: Add Manual Diff / Slide Review NO; Basophils Absolute Auto 0 /uL (0-100); Basophils Percent Auto 0.1 % (0-2); Eosinophils Absolute Auto 0 /uL (0-450); Hematocrit 45.8 % (41-53); Hemoglobin 14.8 g/dL (13.5-17.5); Lymphocytes Absolute Auto 600 /uL (1100-4500); Lymphocytes Percent Auto 3.5 % (25-40); Mean Corpuscular HGB Conc 32.3 % (30-36); Mean Corpuscular Hemoglobin 29.8 PG (26-34); Mean Corpuscular Volume 92.3 fL (80-100); Monocytes Absolute Auto 700 /uL (0-900); Monocytes Percent Auto 4.1 % (3-14); Neutrophils Absolute Auto 16400 /uL (1500-7000); Neutrophils Percent Auto 92.3 % (50-75); Platelet Count 198 X10^3/uL (150-400); Red Blood Cell Count 4.96 X10^6/uL (4.5-5.9); Red Cell Distribution Width 14.3 % (11.6-14.8); White Blood Cell Count 17.8 X10^3/uL (4.5-11.0)
--- NOTE | 2021-11-08 10:20 | DI.CT.S_ITS ---
PROCEDURE: CT ANGIO CHEST ABDOMEN PELVIS INDICATIONS: assess for PE, AAA (history of AAA repair) TECHNIQUE: Precontrast 5 mm thick sections acquired from the lung apices to the iliac crests. After the administration of intravenous contrast, 2.5 mm thick sections again acquired from the lung apices to the iliac crests. Maximum intensity projection (MIP) oblique sagittal and coronal reformats were then acquired. For radiation dose reduction, the following was used: automated exposure control. COMPARISON: [facility], CT, CT ANGIO UE RT, 01/17/2018, 12:55. [facility], CT, CT ANGIO CHEST PE PROTOCOL, 03/10/2020, 17:34. FINDINGS: Image quality: Excellent. Vasculature: No acute aortic syndrome. No aortic dissection. There is irregular filling of the right axillary artery, (/) which appears worsened compared to 03/10/2020. The vessel is ectatic and tortuous. There is adjacent stranding. The pulmonary arteries are mildly dilated. Right pulmonary artery measures 3.1 cm. Left pulmonary artery measures 3.5 cm. The pulmonary arteries are not opacified. CHEST: Lungs and pleura: Mild patchy opacity in the left upper lobe. There is bilateral streaky opacity atelectasis. No pleural effusions or pneumothorax. Central and peripheral airways are patent and normal in caliber. Mediastinum: Heart size is normal. Coronary artery calcifications. No pericardial effusion. No mediastinal or hilar adenopathy by size criteria. Central pulmonary arteries are normal in size. Esophagus is normal in caliber. No hiatal hernias. Bones and chest wall: No axillary adenopathy by size criteria. Thyroid gland is unremarkable. No suspicious bony lesions. No vertebral body compression fractures. ABDOMEN: Vasculature: There is a hepatic artery stent. The lumen opacification is minimal. However just distal to the stent the artery appears patent. Celiac artery is patent. SMA is patent. RELL origin appears occluded at its origin with 3 opacification via collateral in the proximal aspect. Distal aorta is tortuous. Aorta is mildly ectatic measures up to 3.1 cm. There is moderate calcified plaque. No aortic dissection. There is aneurysmal dilatation of the right common iliac artery which measures 2.1 cm. There is mild stenosis of the proximal right CHANELLE. No dissection. There is aneurysmal dilatation of the left CHANELLE with mural thrombus. This measures 2.4 cm. No dissection. External iliac arteries are patent. The origin of the left internal iliac artery is likely occluded. However, this reconstitutes just distally in the proximal internal iliac artery. Moderate calcified plaque. Retroaortic left renal vein, variant. Solid organs: Liver is normal in size and enhancement. Gallbladder is absent. Biliary system is non dilated. Pancreas enhances normally. Spleen is normal in size and enhancement. No adrenal nodules. Kidneys are normal in size, without hydronephrosis. Small nonobstructing left kidney stones x2. Simple cyst in the right kidney. Low-density cyst in the left kidney. Contour abnormality of the left kidney measuring 1.3 cm, (6/179). Peritoneum and bowel: No free fluid or air. Bowel loops are normal in caliber and wall thickness. Diverticulosis. The appendix is not dilated. Nodes and vessels: No retroperitoneal or mesenteric adenopathy by size criteria. Inferior vena cava is normal in morphology. Miscellaneous: No ventral hernias. PELVIS: Genitourinary: No bladder stone. Prostatomegaly with median lobe hypertrophy. Miscellaneous: No inguinal hernias or adenopathy. No ventral hernias. Bones: No suspicious bony lesions. No vertebral body compression fractures. Multilevel DDD. Scoliosis. IMPRESSION: 1. Pulmonary arteries are not opacified with contrast and pulmonary embolism cannot be excluded. The pulmonary arteries are prominent caliber suggesting pulmonary arterial hypertension. Consider CT pulmonary angiogram or V/Q scan. 2. The right axillary artery demonstrates filling defect suggesting nonocclusive thrombus. This appears to be increased compared to 2020. The vessel is ectatic and tortuous. This is not fully evaluated on this exam. Consider further evaluation with Doppler ultrasound or right upper extremity CTA. 3. No aortic dissection. Abdominal aorta is mildly ectatic. Aneurysmal dilatation of the common iliac arteries. Mild narrowing in the right CHANELLE. Occlusion of the left internal iliac artery at its origin with reconstitution just distally. Occluded origin of the RELL with reconstitution of flow at the proximal RELL. 4. Hepatic artery stent which is likely near occlusive. However, there is reconstitution of flow distally. 6. Left kidney contour abnormality measuring 1.3 cm. This could be a small mass such as renal cell carcinoma. Recommend non emergent renal MRI with IV contrast. Alternatively, renal ultrasound could also be considered. 7. Mild patchy airspace opacity in the left upper lobe. This could represent infectious/inflammatory etiology. Streaky opacity in the lungs is most suggestive of atelectasis. Comment: Findings were discussed with hospitalist Dr. Dorado (sp?) at the time of dictation. Dictated by: Yuri Norris M.D. on 11/08/2021 at 16:20 Approved by: Yuri Norris M.D. on 11/08/2021 at 16:52
[2021-11-08 10:30] LABS: BUN Creatinine Ratio 35.9 (6-22); Blood Urea Nitrogen 33 mg/dL (9-20); Calcium 8.8 mg/dL (8.4-10.2); Chloride 98 mmol/L (98-107); Estimated Glomerular Filt Rate > 60 mL/min (>60); Glucose 258 mg/dL (80-110); Sodium 140 mmol/L (137-145)
[2021-11-08 10:37] LABS: Carbon Dioxide 38 mmol/L (22-32); HEMOLYSIS < 15 (0-50)
[2021-11-08 10:42] LABS: Troponin I < 0.012 ng/mL (0.01-0.034)
[2021-11-08 11:26] LABS: Hemoglobin A1C% w Est Avg Glu 6.8 % (4.0-6.0)
[2021-11-08] MEDS: PANTOPRAZOLE DR 40 MG TABLET PO (12:02)
[2021-11-08] MEDS: IPRATROPIUM 0.5 MG/2.5 ML NEB INH ×4 (12:12→23:05)
[2021-11-08] MEDS: INSULIN GLARGINE 100 UNIT/ML 3ML PEN 10 UNIT SUBCUT (12:27)
--- NOTE | 2021-11-08 15:33 | DIET.CONS ---
Addendum entered by Jodie Tinsley 11/08/21 15:57: confirmed c pts PCP office Rx for glucometer being processed. Original Note: Dietary Consultation Note Admission Date: 11/06/2021 13:44 Assessment: 66y M admitted with trouble breathing, COPD exacerbation referred to nutrition for new onset DM2 (A1c 6.8). RD met c pt in room. Pt states he has had DM2 since 2002. Since then he has taken Metformin bid but cannot remember how much. Pt stopped checking BG over 10y ago because he never had a reading over 105 unless he did something stupid like eat a candy bar which would raise him to 140s. Pt states he was shocked this hospitalization that his BG was >200. He states dinner last night was chicken and brussels sprouts, didn't think that could cause such a BG spike. Pt sees Dr. Emery in [place] for PCP. States he would like to start checking BGs again, would like a Freestyle Cecile. Pt also interested in OP DMSE for support. Pts A1c is technically adequately controlled c current routine. Elevated BGs related to steroid use. Ht: 177.8 cm Wt: 99.79 kg BMI: 31.5 Last BM: 11/06/21 (11/06/21 16:20) MNA: 14 Oscar Score: 23 Diet: 11/06/21 Dinner Carbohydrate Consistent Diet Diet Modifications: Carbohydrate level: Medium (3 CHO) Bedtime snack: No Nutrition Percent Meal Consumed 100% 11/06/21 18:28 Labs: RBC 4.96 X10^6/uL (4.5-5.9) 11/08/21 10:08 Hgb 14.8 g/dL (13.5-17.5) 11/08/21 10:08 Hct 45.8 % (41-53) 11/08/21 10:08 Creatinine 0.92 mg/dL (0.66-1.25) 11/08/21 10:08 Hemoglobin A1c 6.8 % (4.0-6.0) H 11/08/21 10:08 Lactate 0.9 mmol/L (0.7-2.1) 11/06/21 11:00 NT-Pro-B Natriuret Pep 259 pg/mL (<125) H 11/06/21 11:00 Nutrition Diagnosis: altered nutrition related laboratory values (BG) r/t steroid therapy aeb pt admitted c COPD exacerbation, pt with DM2 x20 A1c 6.8, pt with premeal BGs in 200s since initiating steroid therapy. Interventions: 1. Discussed elevated BGs with steroid therapy. Expressed importance of insulin use to manage hyperglycemia while hospitalized. Pt agreeable. 2. RD will call pts PCP requesting glucometer with potential for Cecile CGM if covered by insurance. 3. RD will also request referral to DSME program at [facility] (pts preference), pt would like telehealth visits to support ongoing DM management. Electronically Signed by: Jodie Tinsley 11/08/21 15:33 Clinical Dietitian [address] [id number]
--- NOTE | 2021-11-08 17:15 | DI.US.S_ITS ---
PROCEDURE: US PERIPH VENOUS LOW EXTREM BI INDICATIONS: assess for DVT TECHNIQUE: Real-time imaging, as well as color and pulse Doppler interrogation, were performed of the deep veins of both legs from the inguinal ligament to the popliteal fossa. COMPARISON: US, US PERIPH VENOUS UP EXTREM RT, 03/10/2020, 13:52. FINDINGS: Right: The common femoral, femoral and popliteal veins are normally compressible, and free of intraluminal thrombus. Color and pulse Doppler demonstrate normal phasic intravascular flow. There is normal augmentation response to distal compression maneuver. Left: The common femoral, femoral and popliteal veins are normally compressible, and free of intraluminal thrombus. Color and pulse Doppler demonstrate normal phasic intravascular flow. There is normal augmentation response to distal compression maneuver. IMPRESSION: No DVT in the lower extremities. Dictated by: Precious Phillips M.D. on 11/08/2021 at 19:21 Approved by: Precious Phillips M.D. on 11/08/2021 at 19:21
[2021-11-08] MEDS: AZITHROMYCIN 500 MG in DEXTROSE 5% IN WATER 250 ML 250 MG IV (17:55)
[2021-11-08 18:37] LABS: Troponin I < 0.012 ng/mL (0.01-0.034)
[2021-11-08] MEDS: ATORVASTATIN 20 MG TABLET 40 MG PO (20:32)
[2021-11-08] MEDS: BISACODYL 10 MG SUPP PR (20:32)
[2021-11-08] MEDS: SENNOSIDES 8.6 MG TABLET 17.2 MG PO (20:32)
[2021-11-08] MEDS: guaiFENesin Solution 100 MG/5 ML UDC PO (22:14)
[2021-11-09 04:00] VITALS: BP 141/85; PULSE 67; RESP 22; TEMP 36.8; O2SAT 93
[2021-11-09 07:20] VITALS: PULSE 67; RESP 22; O2SAT 92
[2021-11-09] MEDS: BUDESONIDE 0.5 MG/2 ML NEB INH (07:20)
[2021-11-09] MEDS: IPRATROPIUM 0.5 MG/2.5 ML NEB INH ×2 (07:20→11:27)
--- NOTE | 2021-11-09 07:40 | PM.DS.1 ---
History of Present Illness History of Present Illness Chief complaint: Trouble breathing, Can't smell/taste, fever Narrative: 66-year-old gentleman with COPD, severe P 80 status post right upper extremities stent, abdominal aortic aneurysm with repair, hypertension, hyperlipidemia, chronically anticoagulated who presented today with shortness of breath.? Over the past 3-4 days he has been having night sweats and a productive cough.? No orthopnea or swelling.? He has been more short of breath than baseline.? Shortness of breath is worsened with exertion.? On arrival to the Emergency Department, his O2 sats were 86% on room air they improved to the low to mid 90s on 3 liters/minute.? Chest x-ray was done which revealed cardiomegaly with increased vascularity suggesting edema.? Underlying areas of pneumonia could not be excluded.? CBC revealed a normal white count of 8.4, hemoglobin 16.4, hematocrit 40.8, platelets 168.? INR 1.9.? ABG was performed with a pH is 7.35, pCO2 71.2, PO2 76, bicarb 39, saturation 93%.? Chemistry revealed a sodium of 141, potassium 3.5, chloride 97, bicarb 39, BUN 21, creatinine 0.95, glucose 104.? LFTs were within normal limits.? BNP was 259.? Procalcitonin 0.14.? Cardiac enzymes were negative x1.? COVID test was negative.? EKG revealed no acute ST or T-wave changes.? Patient was given IV Solu-Medrol 125 mg as well as DuoNebs x2 and and albuterol nebulizer as well.? Admission was recommended. Patient denies any chest pain is not any ordered sputum.? He has clear.? He has had some low-grade fevers in the 99-99.5 inch.? Of the 3 nights prior to admission, he states he felt feverish and had to use ice packs around his head and neck and would wake up diaphoretic.? He has not had any ill exposures.? He has been vaccinated been boosted for COVID.? He does report he had some constipation which resolved yesterday with the use of suppositories.? Constipation is a very rare issue for him.? He has been eating and drinking well.? No difficulties with urination.? No leg edema. Discharge Providers Provider Date of admission: 11/06/21 13:44 Discharge Date: 11/09/21 Primary care physician: Brandon Carver MD Consults: 11/08/21 12:13 Consult to Dietitian, Adult Routine Comment: Reason For Exam: diabetes education, new diagnosis A1c 6.8% Discharge provider: Hiram Basurto DO Summary Hospital Course Discharge Diagnosis: 1. COPD exacerbation Patient presented with an acute COPD exacerbation which has escalated over the last several days.? He has continued to smoke.? He was having some low-grade fevers and diaphoresis.? He is on chronic suppressive therapy w/doxycycline for vascular stent/graft infection.? This was held and he was placed on IV azithromycin on admission for anti-inflammatory benefit.? Will transition from solu-medrol 40 mg IV q8 to prednisone po 40mg daily x5 days.? Continue pulmicort nebs.? Formoterol not on formulary.? Continue scheduled and PRN duonebs. Wheezing improved. 2. Acute on chronic hypoxic respiratory failure ABG showed chronic hypercarbia w/ compensation with a pCO2 of 71, elevated bicarb and normal pH?consistent with chronic respiratory failure.? Patient presented with oxygen saturation of 86% on room air.? Initially he required 3lpm.? Now up to 6L NC. -Obtain CTA chest to rule out PE as patient notes noncompliance with home eliquis -Home O2 eval showed patient requiring 3L O2 so home O2 ordered with diagnosis of COPD -Responded well to 20mg IV lasix 3. Severe PAD Patient is has longstanding history of vasculopathy.? He describes having had an aortobifem in the past, previously ruptured triple a, as well as right upper extremity stenting.? As noted, he remains on suppressive therapy for prior stent/graft infection d/t cat saliva. -changed lovastatin to atorvastatin 80mg nightly -CTA chest/abd/pelvis showed numerous arterial stenosis in axilla, RELL, hepatic artery -Smoking cessation counseling given 4. Hypertension Blood pressure now normotensive.? Chlorthalidone is listed on home meds but has not yet been confirmed.? He is on metoprolol, lisinopril and amlodipine. -resumed on discharge 5. Hyperlipidemia Continue atorvastatin. ? 6. Diabetes mellitus type 2 His prescribed metformin at baseline.? Some elevated blood sugars d/t steroids.? -A1c 6.8% -continued home metformin on discharge 7. Chest pain, not present on admission -Substernal heavy pressure, non-radiating and occured at rest on 11/08 -ECG without ST changes, troponin negative x2 -CTA chest/abd/pelvis showed no dissection, PE or AAA 8. History of AAA repair -Done at [facility], patient cannot remember vascular surgeon's name -Supposed to have q2 year abd US, but patient skipped last screening and is due for US now -CTA abd pelvis to assess AAA repair showed no evidence of AAA 9. Tobacco dependence -Patient is 50 pack year smoker -I spent 11 minutes counseling patient on smoking cessation 10. Left kidney mass 1.3cm -Seen incidentally on CT abd -PCP should f/u with outpatient renal US vs renal MR angio to rule out renal cell carcinoma Hospital Course: 66-year-old gentleman with COPD, severe PAD status post right upper extremities stent, abdominal aortic aneurysm with repair, hypertension, hyperlipidemia, chronically anticoagulated who presented to the ED yesterday with shortness of breath.? He was admitted w/a COPD exacerbation and acute/chronic hypoxic resp failure.? He was initiated on IV steroids, budesonide nebs, duonebs, and supplemental O2.? Initially he was requiring 6L and improved to 3L. Home O2 eval done which qualified patient for home O2 at 3L. He was discharged on 3 additional days of prednisone and had very minimal wheezes on day of discharge. Home lovastatin changed to atorvastatin due to PVD seen on CTA chest/abd/pelvis. Should have outpatient f/u with renal US to assess 1.3cm left renal mass. Needs to stop smoking so PCP could consider wellbutrin vs chantix for this. Time Spent with Patient Time spent: Greater than 30 minutes Exam Vital Signs (past 8 hours): - 11/09/21 04:00 11/09/21 07:20 Temperature 98.2 F Pulse Rate 67 67 Respiratory Rate 22 22 Blood Pressure 141/85 H Pulse Oximetry 93 92 Oxygen Delivery Method Nasal Cannula Oxygen Flow Rate 6 6 Fraction of Inspired Oxygen 45 Fraction of Inspired Oxygen 45 Oxygen Delivery Method Nasal Cannula Oxygen Flow Rate 6 Narrative Exam Narrative: GEN:? Very pleasant middle aged male, Alert and oriented x3,NAD HEENT:? Normocephalic, face symmetric CHEST:? Respiratory excursions symmetric, faint wheezes CV:? Regular rate and rhythm, no murmurs, rubs, gallops, PMI nondisplaced ABD:? Soft, nontender, nondistended, bowel sounds present in all 4 quadrants, no organomegaly or masses appreciated EXTR:? Warm, well perfused, no clubbing/cyanosis/edema SKIN:? Warm and dry, without rash NEURO:? Alert and oriented x3, grossly intact PSYCH:? Mood and affect is within normal limits, judgment and insight are appropriate Objective Labs Result Diagrams: 11/09/21 08:40 11/09/21 08:40 Labs: Laboratory Results - last 24 hr 11/08/21 11/08/21 11/08/21 10:08 10:08 10:08 WBC 17.8 H D RBC 4.96 Hgb 14.8 Hct 45.8 MCV 92.3 MCH 29.8 MCHC 32.3 RDW 14.3 Plt Count 198 Neut % (Auto) 92.3 H Lymph % (Auto) 3.5 L [place] % (Auto) 4.1 Eos % (Auto) 0.0 L Baso % (Auto) 0.1 Neut # (Auto) 24851 H Lymph # (Auto) 600 L [place] # (Auto) 700 Eos # (Auto) 0 Baso # (Auto) 0 Sodium 140 Potassium 4.0 Chloride 98 Carbon Dioxide 38 H BUN 33 H Creatinine 0.92 Estimated GFR > 60 BUN/Creatinine Ratio 35.9 H Glucose 258 H Hemoglobin A1c 6.8 H Calcium 8.8 Troponin I < 0.012 11/08/21 17:43 WBC RBC Hgb Hct MCV MCH MCHC RDW Plt Count Neut % (Auto) Lymph % (Auto) [place] % (Auto) Eos % (Auto) Baso % (Auto) Neut # (Auto) Lymph # (Auto) [place] # (Auto) Eos # (Auto) Baso # (Auto) Sodium Potassium Chloride Carbon Dioxide BUN Creatinine Estimated GFR BUN/Creatinine Ratio Glucose Hemoglobin A1c Calcium Troponin I < 0.012 [facility] Medical History Abdominal aortic aneurysm Axillary artery thrombosis, right COPD (chronic obstructive pulmonary disease) Hyperlipidemia Hypertension Patent foramen ovale Peripheral vascular disease Radial artery occlusion, right Surgical History History of abdominal aortic aneurysm repair History of carpal tunnel release of both wrists Hx of cholecystectomy Social History household members: spouse Smoking Status: Current every day smoker Discharge Plan Discharge Plan Patient Disposition: Home Provider Discharge Comment: Your admitted for COPD exacerbation secondary to your long history of smoking. You improved on steroids. A lung scan showed no evidence of clot in your lungs. You will finish 3 days of steroids. You really need to quit smoking as your lungs cannot handle much more damage, and if you don't you will likely be back in the hospital with this same problem again soon. Ask your PCP about prescribing you Chantix to help quit as it's been proven to be the most effective way to stop smoking. Discharge orders & Medications Prescriptions: New prednisone 20 mg Tablet 40 mg PO DAILY 3 Days Qty: 6 0RF atorvastatin 80 mg tablet 80 mg PO BEDTIME Qty: 90 0RF Continued metoprolol succinate 50 mg tablet extended release 24 hr 1 tab PO DAILY amlodipine 10 mg tablet 10 mg PO DAILY aspirin 81 mg Tablet,Delayed Release (Dr/Ec) 81 mg PO DAILY benazepril 40 mg tablet 40 mg PO DAILY Eliquis tablet 5 mg PO BID Discontinued lovastatin 40 mg tablet 40 mg PO DAILY Follow up/Referrals: Brandon Carver MD [Primary Care Provider] - Diet/Activity/Treatments Diet: Regular Visit Report/Discharge Packet Instructions: DI for Chronic Obstructive Pulmonary Disease, Prednisone Discharge Data Primary Care Provider: Brandon Carver
[2021-11-09 08:47] LABS: Add Manual Diff / Slide Review NO; Basophils Absolute Auto 0 /uL (0-100); Basophils Percent Auto 0.2 % (0-2); Eosinophils Absolute Auto 0 /uL (0-450); Eosinophils Percent Auto 0.1 % (2-4); Hematocrit 45.7 % (41-53); Hemoglobin 14.9 g/dL (13.5-17.5); Lymphocytes Absolute Auto 1500 /uL (1100-4500); Lymphocytes Percent Auto 10.1 % (25-40); Mean Corpuscular HGB Conc 32.7 % (30-36); Mean Corpuscular Volume 91.9 fL (80-100); Monocytes Absolute Auto 1400 /uL (0-900); Monocytes Percent Auto 9.2 % (3-14); Neutrophils Absolute Auto 12000 /uL (1500-7000); Neutrophils Percent Auto 80.4 % (50-75); Platelet Count 208 X10^3/uL (150-400); Red Blood Cell Count 4.97 X10^6/uL (4.5-5.9); Red Cell Distribution Width 14.1 % (11.6-14.8); White Blood Cell Count 14.9 X10^3/uL (4.5-11.0)
[2021-11-09 08:57] LABS: D Dimer 455 ng/mL (<230)
[2021-11-09 09:01] LABS: BUN Creatinine Ratio 34.6 (6-22); Blood Urea Nitrogen 27 mg/dL (9-20); Calcium 8.5 mg/dL (8.4-10.2); Chloride 101 mmol/L (98-107); Estimated Glomerular Filt Rate > 60 mL/min (>60); Glucose 139 mg/dL (80-110); Potassium 4.1 mmol/L (3.4-5.1); Sodium 143 mmol/L (137-145)
[2021-11-09 09:09] LABS: HEMOLYSIS < 15 (0-50)
[2021-11-09 09:12] LABS: Carbon Dioxide 40 mmol/L (22-32)
--- NOTE | 2021-11-09 09:38 | DI.CT.S_ITS ---
PROCEDURE: CT ANGIO CHEST PE PROTOCOL INDICATIONS: rule out PE, on 6L TECHNIQUE: After the administration of intravenous contrast, 2 mm thick sections acquired from the pulmonary apices to the posterior costophrenic angles. 3-dimensional maximum intensity projection (MIP) coronal and sagittal reformats were then acquired through the thorax. For radiation dose reduction, the following was used: automated exposure control, adjustment of mA and/or kV according to patient size. COMPARISON: [facility], CT, CT ANGIO CHEST ABDOMEN PELVIS, 11/08/2021, 14:00. [facility], CT, CT ANGIO CHEST PE PROTOCOL, 03/10/2020, 17:34. FINDINGS: Image quality: Excellent. Pulmonary arteries: There are no filling defects in the central or visible peripheral pulmonary arteries. The main pulmonary trunk is dilated at 4.6 cm. Main pulmonary arteries are both enlarged measuring 3.0 cm on the right and 3.6 cm on the left. Lungs and pleura: Scattered, small peripheral anterior, posterior, and lateral right upper lobe linear opacities, trace parenchymal ground-glass opacities and slight interstitial thickening in the right lower lobe, left mid lung, and left lower lobe posteriorly. No dense consolidations or pleural effusions. Mild smooth interstitial thickening at both lung bases. Central and peripheral airways are patent. Mediastinum: The heart is enlarged and there is moderate coronary artery calcification present. No pericardial effusion. The aorta is normal caliber with a tortuous descending course. There are several nonenlarged mediastinal lymph nodes. The esophagus is normal without hiatal hernia. Bones and chest wall: There is an aneurysmal dilatation of the right subclavian artery. The axillary segment demonstrates surgical changes of a bypass graft. The distal axillary portion is diffusely aneurysmal with surrounding mild inflammatory changes, similar compared to recent prior study. No axillary adenopathy. The thyroid gland is normal. Moderate scoliosis of the thoracic spine with associated degenerative changes. Abdomen: The upper abdomen demonstrates a cirrhotic liver morphology. Spleen size is probably normal. IMPRESSION: 1. No visible pulmonary emboli. 2. Scattered subpleural small linear consolidations and trace scattered minor ground-glass opacity. These may be post infectious, less likely residual of prior tiny peripheral emboli, or scarring. These were present on the study from the previous day. 3. Enlargement of pulmonary outflow tract and main pulmonary arteries suggesting pulmonary arterial hypertension, chronic. Similar caliber from 03/10/20. 4. Cardiomegaly. 5. Partially evaluated right subclavian and axillary segment aneurysmal dilatation, chronic with partially imaged new axillary bypass graft present since 2019. Dictated by: Kelly Meza M.D. on 11/09/2021 at 11:15 Approved by: Kelly Meza M.D. on 11/09/2021 at 11:32
[2021-11-09] MEDS: APIXABAN 5 MG TABLET PO (09:39)
[2021-11-09] MEDS: predniSONE 20 MG TABLET 40 MG PO (09:39)
[2021-11-09] MEDS: DOCUSATE 100 MG CAPSULE PO (09:39)
[2021-11-09] MEDS: ASPIRIN EC 81 MG TABLET PO (09:39)
[2021-11-09] MEDS: AMLODIPINE 5 MG TABLET 10 MG PO (09:41)
[2021-11-09 09:43] VITALS: BP 139/97; PULSE 74
[2021-11-09] MEDS: METOPROLOL ER 50 MG TABLET PO (09:43)
[2021-11-09] MEDS: PANTOPRAZOLE DR 40 MG TABLET PO (09:43)
[2021-11-09 09:44] VITALS: BP 139/97; PULSE 74
[2021-11-09] MEDS: lisinopriL 20 MG TABLET 40 MG PO (09:44)
[2021-11-09] MEDS: guaiFENesin Solution 100 MG/5 ML UDC PO (09:45)
[2021-11-09] MEDS: INSULIN GLARGINE 100 UNIT/ML 3ML PEN 10 UNIT SUBCUT (09:45)
[2021-11-09 11:27] VITALS: O2SAT 96
[2021-11-09 11:28] VITALS: O2SAT 92; O2SAT 93
--- NOTE | 2021-11-09 13:54 | PC.NURSE ---
Addendum entered by Beulah Rust R.N. 11/09/21 14:01: critical CO2 of 40. Informed patient he should be evaluated out patient for JOSUE. Original Note: Pt is A&OX3, VSS, afebrile, on 6 LNC. Pt SOB with activity and strong productive cough. Medications given including prn guifinassin with good effect. Pt denies pain this a.m., good appetite. BG well controlled. MD at bedside this a.m. notified of critical C)@ o orders CT of chest and HOme 02 eval for patient. No PE on CT and patient is cleared for discharge with home 02. RT at bedside evaluates patient and delevers tank to room. Pt verbalizes understanding of discharge recommendations, medications, and follow up plan of care. He is escorted via w/chair with all of his belongings and prescription to private vehicle with at approximately 1255. He acknowledges recommendations to follow up with PCP, concerning sleep study.
--- NOTE | 2021-11-09 15:43 | CM.DPNOTE ---
DC Note This CM team following closely for last 48 hrs as medical plan of care unfolded. Patient and spouse denied needs from CM team and patient's RN and discharging doctor agreed Plan: DC home w/spouse to assist, home O2, and close outpatient follow up JW
== END 2021-11-09 12:55 | disposition home or self-care (01) | DRG 189 ==
LOC: ED 13:27 → AC 13:45
PROVIDERS: Student in an Organized Health Care Education/Training Program; Admitting Provider Family Medicine; Emergency Provider Emergency Medicine; PCP Family Medicine; Referring Provider Emergency Medicine; Visit Provider Family Medicine
DX: J96.21 Acute and chronic respiratory failure with hypoxia (principal); J44.1 Chronic obstructive pulmonary disease with (acute) exacerbation; E11.51 Type 2 diabetes mellitus with diabetic peripheral angiopathy without gangrene; I10 Essential (primary) hypertension; R07.89 Other chest pain; N28.89 Other specified disorders of kidney and ureter; Z20.822 Contact with and (suspected) exposure to COVID-19; Z99.81 Dependence on supplemental oxygen; Z72.0 Tobacco use; Z79.01 Long term (current) use of anticoagulants; Z79.84 Long term (current) use of oral hypoglycemic drugs
CPT/HCPCS: 36415; 36600; 71045; 71275; 74174; 80048; 80053; 82550; 82553; 82805; 82962; 83036; 83605; 83735; 83880; 84145; 84484; 85025; 85379; 85610; 85730; 87040; 87635; 93005; 93010; 93970; 94618; 94640; 94760; 94762; 96374; 99285; C9803; J1815; J1940; J2930; J7613; Q9967